=== PATIENT | female | born 1930 | race Caucasian/White ===

== ENCOUNTER → 2016-05-16 | Outpatient (CLI) | payer MEDICARE ==
[~2016-05-16] MED LIST: AGM875T PO; ALLP100T PO; AMT25T PO; ASP81TEC PO; CALC-781 PO; CPR500T PO; DIAZ-345 PO; ENAL5TAB PO; HCT25T PO; HYDR-34 PO; MULT-608 PO; NS IV 1000 ML 1,000 ML IV SCH; OMEG1CAP51 PO; TRAM50TA2 PO
--- OUTSIDE RECORDS SUMMARY | 2016-05-16 09:03 | XMS REPORT | Continuity of Care Document ---
Author Author [facility] Organization [facility] Address Unknown Phone Unavailable Care Team Providers Care Material Reprocessing Associate Name Role Phone DIOR HSIEH MD PCP Insurance Providers Payer Name Policy Number Subscriber Name Relationship Wps Medicare [id number] Leslie Denise L 18 Self / Same As Patient Blue Cross Mcr Supp [id number] Leslie Denise 18 Self / Same As Patient Advance Directives Directive Response Recorded Date/Time Advance Directives No 01/20/14 5:17am Health Care Power of Trenching Machine Operator No 01/20/14 5:17am Organ Donor No 01/20/14 5:17am Resuscitation Status Full Code 01/20/14 5:17am Chief Complaint and Reason for Visit Chief Complaint LLQ ABD PAIN,DIVERTICULITIS,UTI Reason for Visit Urinary tract infection Diverticulitis of intestine Problems Medical Problems Problem Onset Date Status Urinary tract infection Unknown Active Diverticulitis of intestine Unknown Active Medications Medication Dose Route Sig Days/Qty Instructions Order Date Discontinued Date Status Diazepam 5 Mg PO BEDTIME 12/19/10 Active Amitriptyline HCl 25 Mg PO BEDTIME PRN DEPRESSION takes 1/2 tab 01/20/14 Discontinued Hydrochlorothiazide 1 Each PO DAILY 12/19/10 01/20/14 Discontinued Aspirin 81 Mg PO DAILY 12/19/10 Active Multivitamins 1 Tab PO DAILY 12/19/10 Active [place]-3 Fatty Acids/Fish Oil 1,000 Mg PO DAILY 12/19/10 Active Enalapril Maleate 5 Mg PO DAILY 12/19/10 Active Acetaminophen/Hydrocodone Bitart 1 - 2 Ea PO Q 4 - 6 HR PRN 01/10/11 08/08/12 Discontinued Tramadol Hcl 50 Mg PO EVERY 6 HOURS 08/08/12 01/20/14 Discontinued Ciprofloxacin 1 Tab PO TWICE A DAY 08/08/12 01/20/14 Discontinued Hydrochlorothiazide 25 Mg PO DAILY 08/08/12 01/20/14 Discontinued Allopurinol 200 Mg PO DAILY 01/20/14 Active Calcium Carbonate/Mag Hydrox 1 Tab PO DAILY PRN STOMACH UPSET Active Amoxicillin/Clavulanate K 1 Tab PO TWICE A DAY 10 Qty 01/22/14 Active Social History Social History Problem Response Recorded Date/Time Alcohol Use Denies Use 01/20/2014 4:52am Recreational Drug Use No 01/20/2014 4:52am Recent Foreign Travel No 01/20/2014 4:52am Recent Infectious Disease Exposure No 01/20/2014 4:52am Hospitalization with Isolation Denies 01/22/2014 2:59pm Sexually Transmitted Disease No 01/20/2014 4:52am Smoking Status Never a Smoker 01/20/2014 4:56am Do you dip or chew tobacco? No 01/20/2014 4:56am Query Response Start Date Stop Date Smoking Status Never a Smoker Hospital Discharge Instructions Patient Instructions Physician Instructions Plan of Care/Instructions/FU: Completer remaining 5 days of antibiotic Activity as Tolerated: Yes Discharge Diet: No Restrictions Return to The Hospital For: Declining condition Plan of Care Discharge Date 01/22/14 1:15pm Disposition 30 STILL A PATIENT Instructions/Education Provided Acute Abdominal Pain (ED) Forms Provided [facility] Information PDI Medical Prescriptions See Medications Section Referrals DIOR HSIEH MD (Unspecified) Address: [address] [place] [address] [id number] Functional Status Query Response Date Recorded Patient Orientation Person Place Time Situation January 22, 2014 2:59pm Comprehension Ability Understands Concepts January 21, 2014 9:00pm Allergies, Adverse Reactions, Alerts Allergen Type Severity Reaction Status Last Updated Sulfa (Sulfonamide Antibiotics) ([id number]) Allergy Unknown Active 05/05 Immunizations Name Given Type Hepatitis A No Historical Hepatitis B No Historical Tetanus Booster (TDap) Unknown Historical influenza, split (incl. purified surface antigen) 01/21/14 Administered influenza, split (incl. purified surface antigen) 01/21/14 Administered Vital Signs Acute Vital Signs Vital Response Date/Time Temperature (Fahrenheit) 96.9 degrees F (97.6 - 99.5) Temperature (Calculated Celsius) 36.11601 degrees C (36.4 - 37.5) Temperature Source Tympanic Pulse Rate (adult) 79 bpm (60 - 90) Respiratory Rate 18 bpm (12 - 24) O2 Sat by Pulse Oximetry 93 % (88 - 100) Blood Pressure 133/64 mm Hg Pain Pain Intensity 0 Height (Feet) 5 feet Height (Inches) 6.00 inches Height (Calculated Centimeters) 167.059234 cm Weight (Pounds) 223 pounds Weight (Calculated Grams) 373352.100 gm Weight (Calculated Kilograms) 101.307933 kilograms Calculated BMI 35.99 Results Test Source Date Result Interp. Ref. Range Comments Alanine Aminotransferase (ALT/SGPT) August 08, 2012 8:30am 76 U/L H 30- 65 Albumin August 08, 2012 8:30am 3.5 G/DL N 3.4-5.0 Alkaline Phosphatase August 08, 2012 8:30am 90 U/L N 50-136 Aspartate Amino Transf (AST/SGOT) August 08, 2012 8:30am 62 U/L H 15-37 B-Type Natriuretic Peptide November 09, 2005 4:45pm 40.5 PG/ML N 5.0-100.0 BUN/Creatinine Ratio August 08, 2012 8:30am 15 - Basophils # (Auto) August 08, 2012 8:30am 0.0 10^3/uL N 0.0-0.1 Basophils (%) (Auto) August 08, 2012 8:30am 0 % N 0-10 Blood Urea Nitrogen August 08, 2012 8:30am 22 MG/DL H 7-18 C-Reactive Protein August 08, 2012 8:30am 3.8 MG/DL H 0.2-0.9 Calcium Level August 08, 2012 8:30am 8.8 MG/DL N 8.5-10.1 Carbon Dioxide Level August 08, 2012 8:30am 29 MMOL/L N 21-32 Chloride Level August 08, 2012 8:30am 99 MMOL/L L 101-110 Creatinine August 08, 2012 8:30am 1.5 MG/DL H 0.6-1.3 Eosinophils # (Auto) August 08, 2012 8:30am 0.1 10^3/uL N 0.0-0.3 Eosinophils (%) (Auto) August 08, 2012 8:30am 1 % N 0-10 Erythrocyte Sedimentation Rate August 08, 2012 8:30am 12 MM/HR N 0-30 Glucose Level August 08, 2012 8:30am 138 MG/DL H 74-106 Hematocrit August 08, 2012 8:30am 37 % N 35-52 Hemoglobin August 08, 2012 8:30am 13.3 G/DL N 11.5-16.0 Lymphocytes # (Auto) August 08, 2012 8:30am 1.1 X 10^3 N 1.0-4.0 Lymphocytes (%) (Auto) August 08, 2012 8:30am 17 % N 12-44 Mean Corpuscular Hemoglobin August 08, 2012 8:30am 33 PG N 25-34 Mean Corpuscular Hemoglobin Concent August 08, 2012 8:30am 36 G/DL N 32- 36 Mean Corpuscular Volume August 08, 2012 8:30am 94 FL N 80-99 Mean Platelet Volume August 08, 2012 8:30am 9.4 FL N 7.4-10.4 Monocytes # (Auto) August 08, 2012 8:30am 0.5 X 10^3 N 0.0-1.0 Monocytes (%) (Auto) August 08, 2012 8:30am 8 % N 0-12 Neutrophils # (Auto) August 08, 2012 8:30am 4.8 X 10^3 N 1.8-7.8 Neutrophils (%) (Auto) August 08, 2012 8:30am 73 % N 42-75 Platelet Count August 08, 2012 8:30am 141 10^3/uL N 130-400 Potassium Level August 08, 2012 8:30am 3.6 MMOL/L N 3.6-5.0 Red Blood Count August 08, 2012 8:30am 3.99 10^6/uL L 4.35-5.85 Red Cell Distribution Width August 08, 2012 8:30am 12.7 % N 10.0-14.5 Sodium Level August 08, 2012 8:30am 135 MMOL/L N 135-145 Total Bilirubin August 08, 2012 8:30am 0.5 MG/DL N 0.0-1.0 Total Protein August 08, 2012 8:30am 7.0 G/DL N 6.4-8.2 Uric Acid August 08, 2012 8:30am 9.7 MG/DL H 2.6-7.2 White Blood Count August 08, 2012 8:30am 6.5 10^3/uL N 4.3-11.0 Estimat Glomerular Filtration Rate August 08, 2012 8:30am 33 - GFR INTERPRETIVE DATA UNITS FOR ESTIMATED GFR (eGFR): mL/min/1.73 M2 REFERENCE RANGE FOR ESTIMATED GFR (eGFR) eGFR NORMAL eGFR >60 MODERATELY DECREASED eGFR 30-59 SEVERLY DECREASED eGFR 15-29 KIDNEY FAILURE <15 (OR DIALYSIS) MRSA Screen Nasal December 19, 2010 9:45am MRSA not isolated Procedures No known history of procedures. Encounters Encounter Location Date/Time Discharged Inpatient [facility] 01/20/14 3:30am Recent Diagnosis Urinary tract infection Diverticulitis of intestine
[2016-05-16 09:41] LABS: ALBUMIN 4.1 G/DL (3.2-4.5); BILIRUBIN,TOTAL 0.5 MG/DL (0.1-1.0); CALCIUM 9.3 MG/DL (8.5-10.1); CREATININE SERUM 1.52 MG/DL (0.60-1.30); POTASSIUM 4.2 MMOL/L (3.6-5.0)
== END ==
LOC: RAD 09:00
PROVIDERS: ATTEND Internal Medicine Cardiovascular Disease
DX: I65.23 Occlusion and stenosis of bilateral carotid arteries (principal)
CPT/HCPCS: 36415; 80053; 80061; 82565; 84520

== ENCOUNTER → 2016-05-18 | Outpatient (CLI) | payer MEDICARE ==
[~2016-05-18] MED LIST changes: +CATHETER FLUSH 10 ML SYR IV PRN; +IOHEXOL 350 MG/ML 100 ML (OMNIPAQUE 350) VIAL IV ONE; +NS 100 ML (IVPB) BAG IV ONE; -NS IV 1000 ML 1,000 ML IV SCH
--- OUTSIDE RECORDS SUMMARY | 2016-05-18 09:03 | XMS REPORT | Continuity of Care Document ---
Author Author [facility] Organization [facility] Address Unknown Phone Unavailable Care Team Providers Care Aircraft Armament Mechanic Name Role Phone DIOR HSIEH MD PCP Insurance Providers Payer Name Policy Number Subscriber Name Relationship Wps Medicare [id number] Leslie Denise L 18 Self / Same As Patient Blue Cross Mcr Supp [id number] Leslie Denise 18 Self / Same As Patient Advance Directives Directive Response Recorded Date/Time Advance Directives No 01/20/14 5:17am Health Care Power of Senior Hadoop Developer No 01/20/14 5:17am Organ Donor No 01/20/14 [...] Multivitamins 1 Tab PO DAILY 12/19/10 Active [place]-3 Fatty Acids/Fish Oil 1,000 Mg PO DAILY [...] Section Referrals DIOR HSIEH MD (Unspecified) Address: [address] [place] [address] [id number] Functional Status Query Response Date Recorded Patient Orientation Person Place Time Situation January 22, 2014 2:59pm Comprehension Ability Understands Concepts January 21, 2014 9:00pm Allergies, Adverse Reactions, Alerts Allergen Type Severity Reaction Status Last Updated Sulfa (Sulfonamide Antibiotics) ([id number]) Allergy Unknown Active 05/05 Immunizations Name Given Type Hepatitis A No Historical Hepatitis B No Historical Tetanus Booster (TDap) Unknown Historical influenza, split (incl. purified surface antigen) 01/21/14 Administered influenza, split (incl. purified surface antigen) 01/21/14 Administered Vital Signs Acute Vital Signs Vital Response Date/Time Temperature (Fahrenheit) 96.9 degrees F (97.6 - 99.5) Temperature (Calculated Celsius) 36.24792 degrees C (36.4 - 37.5) Temperature Source Tympanic Pulse Rate (adult) 79 bpm (60 - 90) Respiratory Rate 18 bpm (12 - 24) O2 Sat by Pulse Oximetry 93 % (88 - 100) Blood Pressure 133/64 mm Hg Pain Pain Intensity 0 Height (Feet) 5 feet Height (Inches) 6.00 inches Height (Calculated Centimeters) 167.588640 cm Weight (Pounds) 223 pounds Weight (Calculated Grams) 693742.100 gm Weight (Calculated Kilograms) 101.633868 kilograms Calculated BMI 35.99 Results Test Source [...] Encounters Encounter Location Date/Time Discharged Inpatient [facility] 01/20/14 3:30am Recent Diagnosis Urinary tract infection Diverticulitis of intestine
[2016-05-18 10:09] LABS: CREATININE SERUM 1.37 MG/DL (0.60-1.30)
--- NOTE | 2016-05-18 12:03 | Diagnostic Imaging Report ---
EXAMINATION: CTA of the neck. INDICATION: Carotid stenosis. TECHNIQUE: Contiguous axial sections were taken from the mid portion of the skull to the lung apices following administration of intravenous contrast. Sagittal and coronal reconstructed images were also performed. COMPARISON: There are no prior studies available for comparison. FINDINGS: There is heavy atherosclerotic plaque involving both carotid bifurcations. There is a band-like stenosis of the origin of the internal carotid artery on the left. The stenosis in this area is probably in the 60-70% range. There is an even more stenotic portion of the proximal internal carotid artery, roughly 2 cm cephalad to this area. The stenosis in this area is in the 70-80% range. There is also narrowing of the origin of the internal carotid artery on the right, but the stenosis in this area is less than 70%. Both vertebral arteries were identified. The vertebral arteries are codominant. The images through the skull show no evidence for an aneurysm involving the [place]. There is no sign of a hemodynamically significant stenosis either. There is no mass or adenopathy involving the neck. The thyroid gland is prominent and somewhat heterogeneous in appearance. The lung apices are clear. The bone windows show no sign of a fracture or of a destructive lesion. There is degenerative disc and bony disease at C5-6. The intracranial contents, where visualized, are unremarkable for an acute abnormality. IMPRESSION: 1. There is severe atherosclerotic disease involving both carotid bifurcations. There is a 60-70% stenosis of the origin of the internal carotid artery on the left. Just cephalad to this area, there is another more severe (70-80%) stenosis of the internal carotid artery. There is no hemodynamically significant stenosis of the internal carotid artery on the right. 2. If further evaluation is desired, then a carotid Doppler exam would be recommended. Dictated by: Dictated on workstation # [id number]
== END ==
LOC: RAD 09:00
PROVIDERS: ATTEND Internal Medicine Cardiovascular Disease
DX: I65.23 Occlusion and stenosis of bilateral carotid arteries (principal)
CPT/HCPCS: 36415; 70498; 82565; 84520

== ENCOUNTER → 2017-03-25 | Outpatient (CLI) | payer MEDICARE ==
[~2017-03-25] MED LIST changes: -CATHETER FLUSH 10 ML SYR IV PRN; -IOHEXOL 350 MG/ML 100 ML (OMNIPAQUE 350) VIAL IV ONE; -NS 100 ML (IVPB) BAG IV ONE
--- NOTE | 2017-03-25 13:24 | Diagnostic Imaging Report ---
CLINICAL INDICATION: Patient with thyroid mass. COMPARISONS: CT angiogram of the neck dated 05/18/2016. FINDINGS: THYROID NODULES: There is a 1.7 cm x 1.2 cm x 2.1 cm circumscribed hypoechoic nodule within the mid left thyroid gland region. There appear to be small calcifications within this nodule and central Doppler flow noted. There is no other left thyroid nodule seen. There is a 6 mm x 5 mm x 6 mm nodule with posterior shadowing seen within the mid right thyroid region. These nodules are better seen on ultrasound than the comparison CT angiogram and difficult to compare. THYROID GLAND: Besides the thyroid nodules, the thyroid gland has normal size, shape and echogenicity. The right lobe measures 4.8 cm x 1.8 cm x 2.0 cm and the left lobe measures 4.2 cm x 1.3 cm x 2.1 cm in their three dimensions. ISTHMUS: The isthmus is unremarkable and measures 3 mm in thickness. IMPRESSION: 1: There is a 2.1 cm hypoechoic nodule seen within the midportion of the left thyroid gland. There also appears to be calcification within this nodule and central Doppler flow. Fine-needle aspiration of this nodule is suggested for further evaluation. 2: There is a 6 mm partially calcified nodule seen in the midportion of the right thyroid gland. Report was faxed to office of Dr. Ezra Nelson @ 1:21 PM/gisell. Dictated by: Dictated on workstation # [id number]
== END ==
LOC: RAD 11:48
PROVIDERS: ATTEND Internal Medicine
DX: E04.2 Nontoxic multinodular goiter (principal)
CPT/HCPCS: 76536

== ENCOUNTER → 2017-04-01 | Outpatient (CLI) | payer MEDICARE ==
[~2017-04-01] VITALS: Ht 167.6 cm; Wt 101.2 kg
[~2017-04-01] MED LIST changes: +LIDOCAINE 1% INJ 20 ML (XYLOCAINE) VIAL INJ ONE; +LIDOCAINE 1% INJ 50 ML (XYLOCAINE) VIAL ONE
[2017-04-01 13:00] VITALS: BP 128/78
[2017-04-01 13:32] VITALS: BP 128/79
--- NOTE | 2017-04-01 17:07 | Diagnostic Imaging Report ---
EXAMINATION: US-guided core biopsy-thyroid. INDICATION: Left thyroid nodule. Current history and physical and other medical records are reviewed prior to the procedure. CONSENT: Informed consent was obtained from the patient. The risks, benefits, potential complications and alternatives were reviewed and all questions answered to the patient's satisfaction. The patient's vital signs, cardiac rhythm, and pulse oximetry with observed throughout the procedure by qualified nursing personnel. Sedation/medications: none. FINDINGS: Hypoechoic thyroid nodule. PROCEDURE: After maximal sterile barrier technique preparation and draping, 1% lidocaine was utilized for local anesthesia. With the patient in supine position, and via anterior approach, a 19-gauge guide needle is introduced into the dominant left thyroid nodule under live ultrasound guidance. After confirming adequate positioning with saved ultrasound images, multiple 20 gauge core biopsy specimens were obtained. The patient tolerated the procedure well with no immediate complications. IMPRESSION: Successful US-guided core biopsy of dominant left thyroid nodule. Dictated by: Dictated on workstation # [id number]
== END ==
LOC: RAD 12:30
PROVIDERS: ATTEND Internal Medicine
DX: E04.1 Nontoxic single thyroid nodule (principal)
CPT/HCPCS: 76942

== ENCOUNTER 2017-04-19 14:07 | Emergency (ER) | payer MEDICARE ==
[~2017-04-19] VITALS: Ht 165.1 cm; Wt 96.2 kg
[~2017-04-19 14:07] MED LIST changes: -LIDOCAINE 1% INJ 20 ML (XYLOCAINE) VIAL INJ ONE; -LIDOCAINE 1% INJ 50 ML (XYLOCAINE) VIAL ONE
--- OUTSIDE RECORDS SUMMARY | 2017-04-19 14:14 | XMS REPORT | Continuity of Care Document ---
Author Author [facility] Organization [facility] Address Unknown Phone Unavailable Allergies Active Description Code Type Severity Reaction Onset Reported/Identified Relationship to Patient Clinical Status Yes Sulfa (Sulfonamide Antibiotics) [id number] Drug Allergy Unknown N/A 2013 Medications There is no data. Problems Date Dx Coded Attending Type Code Diagnosis Diagnosed By 01/10/2011 Ot 401.9 HYPERTENSION NOS 01/10/2011 Ot 715.31 LOC OSTEOARTH NOS-SHLDER 01/10/2011 Ot V58.69 OTH MED,LT, CURRENT USE 08/08/2012 MYRA SWANSON MD Ot 274.9 GOUT NOS 08/08/2012 MYRA SWANSON MD Ot 729.81 SWELLING OF LIMB 08/08/2012 MYRA SWANSON MD Ot V58.69 OTH MED,LT,CURRENT USE 09/22/2012 ANGELICA FITCH APRN Ot 715.96 OSTEOARTHROS NOS-L/LEG 09/22/2012 ANGELICA FITCH APRN Ot V57.1 PHYSICAL THERAPY NEC 01/22/2014 DIOR HSIEH MD Ot 041.49 OTHER AND UNSPECIFIED ESCHERICHIA COLI [ 01/22/2014 DIOR HSIEH MD Ot 272.4 HYPERLIPIDEMIA NEC/NOS 01/22/2014 DIOR HSIEH MD Ot 274.9 GOUT NOS 01/22/2014 DIOR HSIEH MD Ot 401.9 HYPERTENSION NOS 01/22/2014 DIOR HSIEH MD Ot 530.81 ESOPHAGEAL REFLUX 01/22/2014 DIOR HSIEH MD Ot 562.11 DIVERTICULITIS COLON (W/O MENT OF HEMORR 01/22/2014 DIOR HSIEH MD Ot 564.1 IRRITABLE BOWEL SYNDROME 01/22/2014 DIOR HSIEH MD Ot 599.0 URIN TRACT INFECTION NOS 01/22/2014 DIOR HSIEH MD Ot 716.89 ARTHROPATHY NEC-MULT 01/22/2014 DIOR HSIEH MD Ot V12.72 PERSONAL HISTORY OF COLONIC POLYPS 01/22/2014 JORI DAMIAN DIOR Mendoza Ot 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 03/05/2014 DIOR HSIEH MD Ot 562.11 12/29/2014 DIOR HSIEH MD Ot 790.6 01/04/2015 MOON PA, CROW K Ot 272.4 01/04/2015 MOON PA, CROW K Ot 401.9 01/04/2015 MOON PA, CROW K Ot 426.53 01/04/2015 MOON PA, CROW K Ot 433.10 01/06/2015 JORI DAMIAN, DIOR Mendoza Ot 790.6 01/19/2015 MOON PA, CROW K Ot 272.4 01/19/2015 MOON PA, CROW K Ot 401.9 01/19/2015 MOON PA, CROW K Ot 426.53 01/19/2015 MOON PA, CROW K Ot 433.10 01/26/2015 MOON PA, CROW K Ot 272.4 01/26/2015 MOON PA, CROW K Ot 401.9 01/26/2015 MOON PA, CROW K Ot 426.53 01/26/2015 MOON PA, CROW K Ot 433.10 09/28/2015 Ot 790.4 ELEV TRANSAMINASE/LDH 09/28/2015 Ot 715.91 OSTEOARTHROS NOS-SHLDER 09/28/2015 Ot 840.4 SPRAIN ROTATOR CUFF 09/28/2015 Ot E000.8 OTHER EXTERNAL CAUSE STATUS 09/28/2015 Ot E928.9 ACCIDENT NOS 09/28/2015 Ot 715.31 LOC OSTEOARTH NOS-SHLDER 09/28/2015 Ot V72.63 PRE- PROCEDURAL LABORATORY EXAMINATION 09/28/2015 Ot V72.81 EXAM-PRE- OPERATIVE CARDIOVASCULAR 09/28/2015 Ot V74.8 SCREEN- BACTERIAL DIS NEC 09/28/2015 Ot 426.4 RT BUNDLE BRANCH BLOCK 09/28/2015 Ot V72.81 EXAM-PRE- OPERATIVE CARDIOVASCULAR 09/28/2015 Ot 397.0 TRICUSPID VALVE DISEASE 09/28/2015 Ot 424.0 MITRAL VALVE DISORDER 09/28/2015 Ot 426.4 RT BUNDLE BRANCH BLOCK 09/28/2015 Ot V72.81 EXAM-PRE- OPERATIVE CARDIOVASCULAR 09/28/2015 Ot 426.4 RT BUNDLE BRANCH BLOCK 09/28/2015 Ot V72.81 EXAM-PRE- OPERATIVE CARDIOVASCULAR 09/28/2015 Ot V76.12 OTH SCREEN MAMMO-MALIGN NEOPLASM OF ANA CRISTINA 09/28/2015 DIOR HSIEH MD Ot 562.11 DIVERTICULITIS COLON (W/O MENT OF HEMORR 09/28/2015 JORI DAMIAN, DIOR Mendoza Ot 790.6 ABN BLOOD CHEMISTRY NEC 09/28/2015 CROW SORTO Ot 272.4 HYPERLIPIDEMIA NEC/NOS 09/28/2015 CROW SORTO Ot 401.9 HYPERTENSION NOS 09/28/2015 CROW SORTO Ot 426.53 BILAT BB BLOCK NEC 09/28/2015 CROW SORTO Ot 433.10 CAROTID ARTERY OCCLUSION W O CEREBRAL IN 09/29/2015 SHRUTHI JI MD Ot I65.29 OCCLUSION AND STENOSIS OF UNSPECIFIED CA 09/29/2015 SHRUTHI JI MD Ot E78.5 HYPERLIPIDEMIA, UNSPECIFIED 09/29/2015 SHRUTHI JI MD Ot I10 ESSENTIAL (PRIMARY) HYPERTENSION 09/29/2015 SHRUTHI JI MD Ot I45.2 BIFASCICULAR BLOCK 10/18/2015 SHRUTHI JI MD Ot E78.5 HYPERLIPIDEMIA, UNSPECIFIED 10/18/2015 SHRUTHI JI MD Ot I10 ESSENTIAL (PRIMARY) HYPERTENSION 10/18/2015 SHRUTHI JI MD Ot I45.2 BIFASCICULAR BLOCK 10/31/2015 SHRUTHI JI MD Ot E78.5 HYPERLIPIDEMIA, UNSPECIFIED 10/31/2015 SHRUTHI JI MD Ot I10 ESSENTIAL (PRIMARY) HYPERTENSION 10/31/2015 SHRUTHI JI MD Ot I45.2 BIFASCICULAR BLOCK 05/15/2016 Ot 715.31 LOC OSTEOARTH NOS-SHLDER 05/15/2016 Ot V72.63 PRE- PROCEDURAL LABORATORY EXAMINATION 05/15/2016 Ot V72.81 EXAM-PRE- OPERATIVE CARDIOVASCULAR 05/15/2016 Ot V74.8 SCREEN- BACTERIAL DIS NEC 05/15/2016 Ot 426.4 RT BUNDLE BRANCH BLOCK 05/15/2016 Ot V72.81 EXAM-PRE- OPERATIVE CARDIOVASCULAR 05/15/2016 Ot 397.0 TRICUSPID VALVE DISEASE 05/15/2016 Ot 424.0 MITRAL VALVE DISORDER 05/15/2016 Ot 426.4 RT BUNDLE BRANCH BLOCK 05/15/2016 Ot V72.81 EXAM-PRE- OPERATIVE CARDIOVASCULAR 05/15/2016 Ot 426.4 RT BUNDLE BRANCH BLOCK 05/15/2016 Ot V72.81 EXAM-PRE- OPERATIVE CARDIOVASCULAR 05/15/2016 Ot V76.12 OTH SCREEN MAMMO-MALIGN NEOPLASM OF ANA CRISTINA 05/15/2016 DIOR HSIEH MD Ot 562.11 DIVERTICULITIS COLON (W/O MENT OF HEMORR 05/15/2016 DIOR HSIEH MD Ot 790.6 ABN BLOOD CHEMISTRY NEC 05/15/2016 CROW SORTO Ot 272.4 HYPERLIPIDEMIA NEC/NOS 05/15/2016 CROW SORTO Ot 401.9 HYPERTENSION NOS 05/15/2016 CROW SORTO Ot 426.53 BILAT BB BLOCK NEC 05/15/2016 CROW SORTO Ot 433.10 CAROTID ARTERY OCCLUSION W O CEREBRAL IN 05/15/2016 SHRUTHI JI MD Ot E78.5 HYPERLIPIDEMIA, UNSPECIFIED 05/15/2016 SHRUTHI JI MD Ot I10 ESSENTIAL (PRIMARY) HYPERTENSION 05/15/2016 SHRUTHI JI MD Ot I45.2 BIFASCICULAR BLOCK 05/16/2016 SHRUTHI JI MD Ot 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 Results Test Result Range [id number] - 05/18/16 09:20 Serum or plasma urea nitrogen measurement (mass/volume) 19 mg/dL 7-18 Serum or plasma creatinine measurement (mass/volume) 1.37 mg/dL 0.60-1.30 Serum or plasma urea nitrogen/creatinine mass ratio 14 NRG Serum or plasma creatinine measurement with calculation of estimated glomerular filtration rate 36 NRG Encounters ACCT No. Visit Date/Time Discharge Status Pt. Type Provider Facility Loc./Unit Complaint [id number] 04/01/2017 12:30:00 04/01/2017 23:59:59 CLS Outpatient DIOR HSIEH MD [facility] RAD THYROID MASS [id number] 03/25/2017 11:48:00 03/25/2017 23:59:59 CLS Outpatient DIOR HSIEH MD [facility] RAD THYROID MASS [id number] 01/04/2017 13:30:00 01/04/2017 23:59:59 CLS Preadmit TAMIA ZAVALA MD [facility] RAD THYROID NODULE [id number] 05/18/2016 09:00:00 05/18/2016 23:59:59 CLS Outpatient SHRUTHI JI MD [facility] RAD CAROTID ARTERY STENOSIS [id number] 05/16/2016 09:00:00 05/16/2016 23:59:59 CLS Outpatient SHRUTHI JI MD [facility] RAD CAROTID ARTERY STENOSIS [id number] 09/28/2015 14:25:00 09/28/2015 23:59:59 CLS Outpatient SHRUTHI JI MD [facility] CARD CAST,HTN,HLP [id number] 12/30/2014 13:28:00 12/30/2014 23:59:59 CLS Outpatient CROW SORTO [facility] CARD ADAMS,HTN [id number] 12/08/2014 14:32:00 12/08/2014 23:59:59 CLS Outpatient DIOR HSIEH MD [facility] RAD INCREASED LFTS [id number] 02/04/2014 13:27:00 02/04/2014 23:59:59 CLS Outpatient DIOR HSIEH MD [facility] RAD ABDOMINAL PAIN FOLLOW UP DIVERTICULITIS [id number] 01/20/2014 03:30:00 01/22/2014 13:15:00 DIS Inpatient JORI DAMIAN, DIOR Mendoza [facility] 4TH LLQ ABD PAIN, DIVERTICULITIS,UTI [id number] 09/19/2012 14:14:00 09/22/2012 16:25:00 DIS Outpatient ANGELICA FITCH APRN [facility] REHAB OA LT KNEE [id number] 08/08/2012 07:47:00 08/08/2012 10:11:00 DIS Emergency KIKI DAMIAN, MYRA Lara [facility] ER POSS LEFT GREAT TOE INFECTION [id number] 09/28/2015 14:26:00 Document Registration [id number] 12/14/2011 10:34:00 Document Registration [id number] 01/10/2011 08:47:00 Document Registration [id number] 12/27/2010 07:03:00 Document Registration [id number] 12/26/2010 10:13:00 Document Registration [id number] 12/22/2010 09:34:00 Document Registration [id number] 12/19/2010 08:52:00 Document Registration [id number] 11/06/2010 15:30:00 Document Registration [id number] 10/24/2010 07:34:00 Document Registration
--- NOTE | 2017-04-19 14:57 | ED Fall/Injury ---
General Chief Complaint: Trauma-Non Activation Stated Complaint: FALL Nursing Triage Note: ARRIVED VIA AMBULANCE. PT WAS WALKING INTO [employer] AND FELL. STATES SHE USUALLY WALKS WITH A WALKER AND DID NOT HAVE IT TODAY. HIT HER HEAD. DENIES LOC OR NECK PAIN. COMPLAINS OF FOREHEAD AND LEFT SIDED HEAD PAIN. Source: patient Exam Limitations: no limitations History of Present Illness Time seen by provider: 14:20 Initial Comments Here with report of fall at [employer] in [place]. Apparently she was walking out of the store and lost her balance on the handicap ramp and fell and hit her head. Complains of for head and posterior head pain. She states she had some neck pain earlier but that is gone. Also complains of some right mid leg pain. She was able to walk after the fall with assistance. Denies loss of consciousness or other injury. Occurred: just prior to arrival (approximately one hour ago) Severity: moderate Injuries/Pain Location: head, neck, lower extremity Context: lost balance Loss of Consciousness: no loss of consciousness Associated Symptoms (Fall): No Abdominal Pain, No Chest Pain, No Confusion, Headache, No Lightheadedness, No Nausea/Vomiting, Neck Pain, No Shortness of Air Allergies and Home Medications Allergies Coded Allergies: Sulfa (Sulfonamide Antibiotics) (Verified Allergy, Unknown, 01/20/14) Home Medications Aspirin 81 Mg Tabec, 81 MG PO DAILY, (Reported) Atorvastatin Calcium 10 Mg Tablet, 10 MG PO DAILY, (Reported) Diazepam 5 Mg Tablet, 5 MG PO HS, (Reported) Enalapril Maleate 5 Mg Tablet, 5 MG PO DAILY, (Reported) Enalapril/Hydrochlorothiazide 1 Each Tablet, 1 EACH PO DAILY, (Reported) [place]-3 Fatty Acids/Fish Oil 1 Each Capsule, 1,000 MG PO DAILY, (Reported) Constitutional: see HPI, No chills, No fever Eyes: No Symptoms Reported Ears, Nose, Mouth, Throat: no symptoms reported Respiratory: no symptoms reported Cardiovascular: no symptoms reported, No chest pain, No edema Gastrointestinal: no symptoms reported Genitourinary: no symptoms reported Musculoskeletal: see HPI, No back pain, muscle pain, neck pain Skin: change in color, lumps (posterior scalp and forehead) Psychiatric/Neurological: No Symptoms Reported All Other Systems Reviewed Negative Unless Noted: Yes Past Qejkfgh-Govqgd-Mhutdj Hx Patient Social History Alcohol Use: Denies Use Recreational Drug Use: No Smoking Status: Never a Smoker Recent Foreign Travel: No Contact w/Someone Who Travel: No Recent Infectious Disease Expo: No Immunizations Up To Date Tetanus Booster (TDap): Unknown PED Vaccines UTD: No Surgeries History of Surgeries: Yes (KIDNEY SURG 1972) Respiratory History of Respiratory Disorde: No Cardiovascular History of Cardiac Disorders: Yes Neurological History of Neurological Disord: No Reproductive System Hx Reproductive Disorders: No Sexually Transmitted Disease: No Genitourinary Genitourinary Disorders: Kidney Infection, UTI-Chronic Gastrointestinal History of Gastrointestinal Di: Yes (diverticulitis on this admit 01/20/14) Musculoskeletal History of Musculoskeletal Dis: Yes (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) Musculoskeletal Disorders: Gout Endocrine History of Endocrine Disorders: No Cancer History of Cancer: No Psychosocial History of Psychiatric Problem: No Integumentary History of Skin or Integumenta: No Blood Transfusions History of Blood Disorders: No Reviewed Nursing Assessment Reviewed/Agree w Nursing PMH: Yes Family Medical History Family Medial History: FH: cancer G8 SISTER G8 SISTER Parkinson's disease 19 FATHER G8 BROTHER Physical Exam Vital Signs Vital Sign - Last 12Hours 04/19/17 14:09 Temp 97.0 Pulse 81 Resp 18 B/P (MAP) 148/75 (99) Pulse Ox 96 Capillary Refill : Less Than 3 Seconds General Appearance: WD/WN, no apparent distress HEENT: PERRL/EOMI, pharynx normal, other (left upper incisor and lower mid incisors with small chips) Neck: non-tender, full range of motion, supple, normal inspection Cardiovascular: regular rate, rhythm, no murmur Respiratory: lungs clear, normal breath sounds Gastrointestinal: non tender, soft Back: normal inspection, no CVA tenderness, no vertebral tenderness Extremities: no pedal edema, other (mild tenderness to the mid femur region on the right) Neurologic/Psychiatric: alert, oriented x 3 Skin: warm/dry, ecchymosis (posterior scalp 6 x 6 cm hematoma), other (mild abrasion and erythema to the forehead midline without significant hematoma) Artie Coma Score Best Eye Response: (4) Open Spontaneously Best Verbal Response: (5) Oriented Best Motor Response: (6) Obeys Commands Progress/Results/Core Measures Results/Orders My Orders Orders - SHAR CASTELLANO MD Ct Head/Cervical Spine Wo (12/29/17 14:27) Femur, Right, 2 Views (04/19/17 14:27) Vital Signs/I&O Vital Sign - Last 12Hours 04/19/17 14:09 Temp 97.0 Pulse 81 Resp 18 B/P (MAP) 148/75 (99) Pulse Ox 96 Blood Pressure Mean: 99 Progress Note : Progress Note Seen and evaluated. CT head and neck ordered. X-ray right femur ordered. Monitor patient. 1540: No acute findings other than hematoma. Discharged home with return precautions. Patient and family verbalize understanding instructions and agreement with plan. Diagnostic Imaging Diagonstic Imaging: CT Plain Films/CT/US/NM/MRI: c-spine, head Comments VIA [facility] [place], [place] NAME: LESLIE DENISE [facility] REC#: [id number] PT STATUS: REG ER : 1930 PHYSICIAN: SHAR CASTELLANO MD ADMIT DATE: 04/19/17/ER Draft Date of Exam:04/19/17 CT HEAD/CERVICAL SPINE WO PROCEDURE: CT head and CT cervical spine without contrast. TECHNIQUE: Multiple contiguous axial images were obtained through the brain and cervical spine without the use of intravenous contrast. Sagittal and coronal reformations through the cervical spine were then performed. INDICATION: Fall, pain to posterior head. COMPARISON: CT from 05/18/2016. FINDINGS: CT head: There is generalized parenchymal volume loss. There are focal and confluent areas of hypoattenuation about the subcortical and periventricular white matter. No acute intracranial hemorrhage is seen. No CT evidence of acute territorial ischemia is seen. No focal mass is identified. There is calcific atherosclerosis. The calvarium appears intact. There is a moderate-sized hematoma at the left posterior scalp. The paranasal sinuses are clear. CT cervical spine: There is mild reversal of the cervical lordosis centered at C5-C6. No acute fracture or dislocation is seen in the cervical spine. There are advanced degenerative changes at C5-C6, and multilevel facet arthropathy, most pronounced at C3-C4 on the right. The soft tissue contents of the spinal canal are not well seen by CT, but no bony fragments are identified. There is multilevel foraminal stenosis, most severe at C3-C4 on the right. The prevertebral soft tissues are unremarkable. There is a hypoattenuating nodule in the left thyroid gland, measuring 1.6 cm. IMPRESSION: 1. No acute intracranial hemorrhage. No CT evidence of acute territorial ischemia. 2. Moderate-sized hematoma at the left posterior scalp. No acute calvarium fracture is seen. 3. No acute fracture or dislocation is seen in the cervical spine. Multilevel degenerative changes are present, as described above. Dictated on workstation # [id number] Dict: 04/19/17 1510 Trans: 04/19/17 1519 [facility] [id number] Interpreted by: DELILAH PATEL MD Electronically signed by: Diagonstic Imaging: Xray Plain Films/CT/US/NM/MRI: femur Comments VIA [facility] [place], [place] NAME: LESLIE DENISE [facility] REC#: [id number] PT STATUS: REG ER : 1930 PHYSICIAN: SHAR CASTELLANO MD ADMIT DATE: 04/19/17/ER Draft Date of Exam:04/19/17 FEMUR, RIGHT, 2 VIEWS INDICATION: Fall. Femur pain. COMPARISON: None. FINDINGS: Four views of the right femur show no fractures, dislocations, or other acute bony abnormalities identified. Joint spaces are well maintained throughout. The soft tissues appear unremarkable. No radiopaque foreign bodies are identified. IMPRESSION: No acute fractures or dislocations of the right femur. Dictated on workstation # [id number] Dict: 04/19/17 1503 Trans: 04/19/17 1505 [id number] Interpreted by: PREMA URBANO MD Electronically signed by: Departure Impression Impression: Primary Impression: Head injury, acute, without loss of consciousness Qualified Codes: S09.90XA - Unspecified injury of head, initial encounter Additional Impression: Contusion of right leg Qualified Codes: S80.11XA - Contusion of right lower leg, initial encounter Disposition: 01 HOME, SELF-CARE Condition: Stable Departure-Patient Inst. Decision time for Depature: 15:47 Referrals: DIOR HSIEH MD (PCP/Family) Primary Care Physician Patient Instructions: Contusion (DC), HEAD [id number] WAKE-UP Add. Discharge Instructions: All discharge instructions reviewed with patient and/or family. Voiced understanding. Continue home medications as directed. You may take Tylenol 1000 mg every 6 hours as needed for pain. Follow-up with your Dr. in a few days for recheck and further evaluation as needed. You may use ice packs to the area of bruising 20 minutes per hour as needed for swelling over the next one to 2 days. You should be very careful when moving about as she may have some increased dizziness as a result of the head injury for a few days. Return for worse pain, fever, vomiting, vision or balance problems, weakness or other concerns as needed. SHAR CASTELLANO MD Apr 19, 2017 14:57
--- NOTE | 2017-04-19 15:05 | Diagnostic Imaging Report ---
INDICATION: Fall. Femur pain. COMPARISON: None. FINDINGS: Four views of the right femur show no fractures, dislocations, or other acute bony abnormalities identified. Joint spaces are well maintained throughout. The soft tissues appear unremarkable. No radiopaque foreign bodies are identified. IMPRESSION: No acute fractures or dislocations of the right femur. Dictated by: Dictated on workstation # [id number]
[2017-04-19] MEDS ORDERED: ENAL1TAB8 PO (15:11)
[2017-04-19] MEDS ORDERED: ATOR10TA66 PO (15:11)
--- NOTE | 2017-04-19 15:19 | Diagnostic Imaging Report ---
PROCEDURE: CT head and CT cervical spine without contrast. TECHNIQUE: Multiple contiguous axial images were obtained through the brain and cervical spine without the use of intravenous contrast. Sagittal and coronal reformations through the cervical spine were then performed. INDICATION: Fall, pain to posterior head. COMPARISON: CT from 05/18/2016. FINDINGS: CT head: There is generalized parenchymal volume loss. There are focal and confluent areas of hypoattenuation about the subcortical and periventricular white matter. No acute intracranial hemorrhage is seen. No CT evidence of acute territorial ischemia is seen. No focal mass is identified. There is calcific atherosclerosis. The calvarium appears intact. There is a moderate-sized hematoma at the left posterior scalp. The paranasal sinuses are clear. CT cervical spine: There is mild reversal of the cervical lordosis centered at C5-C6. No acute fracture or dislocation is seen in the cervical spine. There are advanced degenerative changes at C5-C6, and multilevel facet arthropathy, most pronounced at C3-C4 on the right. The soft tissue contents of the spinal canal are not well seen by CT, but no bony fragments are identified. There is multilevel foraminal stenosis, most severe at C3-C4 on the right. The prevertebral soft tissues are unremarkable. There is a hypoattenuating nodule in the left thyroid gland, measuring 1.6 cm. IMPRESSION: 1. No acute intracranial hemorrhage. No CT evidence of acute territorial ischemia. 2. Moderate-sized hematoma at the left posterior scalp. No acute calvarium fracture is seen. 3. No acute fracture or dislocation is seen in the cervical spine. Multilevel degenerative changes are present, as described above. Dictated by: Dictated on workstation # [id number]
[2017-04-19 15:58] VITALS: BP 155/79
== END 2017-04-19 15:58 | disposition home or self-care (01) ==
LOC: EDUNIT# 14:07 → ER 14:08
DX: S09.90XA Unspecified injury of head, initial encounter (principal); S80.11XA Contusion of right lower leg, initial encounter; M19.012 Primary osteoarthritis, left shoulder; M10.9 Gout, unspecified; Z79.82 Long term (current) use of aspirin; Z87.440 Personal history of urinary (tract) infections; Z87.19 Personal history of other diseases of the digestive system; W01.10XA Fall on same level from slipping, tripping and stumbling with subsequent striking against unspecified object, initial encounter; Y92.415 Exit ramp or entrance ramp of street or highway as the place of occurrence of the external cause
CPT/HCPCS: 70450; 72125; 73552; 99283

== ENCOUNTER → 2017-07-10 | Outpatient (CLI) | payer MEDICARE ==
[~2017-07-10] MED LIST changes: +ATOR10TA66 PO; +ENAL1TAB8 PO
--- NOTE | 2017-07-10 18:48 | Diagnostic Imaging Report ---
INDICATION: Thyroid nodules, followup. TECHNIQUE: Grayscale sonographic images of the thyroid gland. CORRELATION STUDY: 03/25/2017. FINDINGS: RIGHT LOBE: 4.5 x 2.1 x 2.0 cm. There are three nodules noted about the right lobe. Previously, there was one at the mid aspect measuring 5 x 6 mm and appearing generally stable. Two new slightly heterogeneous nodules are present. One measuring 12 x 6 x 7 mm and additional one 11 x 12 mm. LEFT LOBE: 4.2 x 1.4 x 2.1 cm. Hypoechoic mass centrally currently measures 1.9 x 1.1 x 1.7 cm. Previously 2.1 x 1.2 x 1.7 cm, generally stable. Minimal peripheral vascularity. Isthmus appears unremarkable. IMPRESSION: Bilateral thyroid nodules. The dominant left lobe nodule appears generally stable. There appear to be least two new slightly heterogeneous solid nodules in the right lobe. Given their interval development, would recommend repeat followup ultrasound imaging in approximately four to six months for followup. (Normal gland size: 4-5 x 2 x 2 cm) Dictated by: Dictated on workstation # [id number]
== END ==
LOC: RAD 11:48
PROVIDERS: ATTEND Internal Medicine
DX: E04.2 Nontoxic multinodular goiter (principal)
CPT/HCPCS: 76536

== ENCOUNTER → 2017-09-23 | Outpatient (CLI) | payer MEDICARE ==
--- NOTE | 2017-09-23 16:35 | Diagnostic Imaging Report ---
PROCEDURE: MRI right joint lower extremity without contrast. TECHNIQUE: Multiplanar, multisequence non contrast-enhanced MRI of the right lower extremity was accomplished. INDICATION: Fall with knee pain. FINDINGS: The anterior cruciate and posterior cruciate ligaments are intact. Both the superficial and deep components of the medial collateral ligament are intact. The biceps femoris, fibular collateral, popliteus and iliotibial band are intact. There is some minimal myxoid degeneration in the posterior horn of the medial meniscus. Lateral meniscus is normal in signal intensity and morphology. Quadriceps tendon and patellar tendons are intact. There is a small knee joint effusion. The articular cartilage is relatively well maintained. There is prepatellar soft tissue swelling and fluid. There are no other marrow signal intensity abnormalities. IMPRESSION: 1. Moderate prepatellar soft tissue swelling and loculated fluid suspect for prepatellar bursitis. 2. Small knee joint effusion. 3. Minimal myxoid degeneration in the posterior horn of the medial meniscus. Dictated by: Dictated on workstation # [id number]
== END ==
LOC: RAD 13:37
PROVIDERS: ATTEND Nurse Practitioner
DX: S80.01XA Contusion of right knee, initial encounter (principal); W19.XXXA Unspecified fall, initial encounter
CPT/HCPCS: 73721

== ENCOUNTER 2018-01-17 13:07 | Outpatient (RCR) | payer MEDICARE | END 2018-01-17 15:46 | disposition home or self-care (01) | PROVIDERS: ATTEND Internal Medicine | DX: R26.81 Unsteadiness on feet (principal); R29.6 Repeated falls ==

== ENCOUNTER 2018-03-17 14:19 | Outpatient (RCR) | payer MEDICARE | END 2018-03-23 | disposition home or self-care (01) | LOC: CR3 14:19 | PROVIDERS: ATTEND Internal Medicine | DX: Z29.8 Encounter for other specified prophylactic measures (principal) ==

== ENCOUNTER 2018-06-26 12:48 | Outpatient (RCR) | payer MEDICARE ==
[2018-07-04] MEDS ORDERED: CEPH-507 PO (12:28)
[2018-07-04] MEDS ORDERED: METR500T PO (12:28)
== END 2018-06-26 13:52 | disposition home or self-care (01) ==
PROVIDERS: ATTEND Internal Medicine
DX: M25.512 Pain in left shoulder (principal); R42 Dizziness and giddiness; R26.81 Unsteadiness on feet

== ENCOUNTER 2018-07-01 10:31 | Inpatient (IN) | payer MEDICARE ==
[~2018-07-01] VITALS: Ht 165.1 cm; Wt 91.6 kg
--- OUTSIDE RECORDS SUMMARY | 2018-07-01 12:06 | XMS REPORT | Continuity of Care Document ---
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 04/17/2017 DIOR HSIEH MD Ot E04.2 NONTOXIC MULTINODULAR GOITER 04/19/2017 SHAR CASTELLANO MD, Ot M10.9 GOUT, UNSPECIFIED 04/19/2017 SHAR CASTELLANO MD, Ot M19.012 PRIMARY OSTEOARTHRITIS, LEFT SHOULDER 04/19/2017 SHAR CASTELLANO MD Ot R51 HEADACHE 04/19/2017 SHAR CASTELLANO MD, Ot S09.90XA UNSPECIFIED INJURY OF HEAD, INITIAL ENCO 04/19/2017 SHAR CASTELLANO MD, Ot S80.11XA CONTUSION OF RIGHT LOWER LEG, INITIAL EN 04/19/2017 SHAR CASTELLANO MD Ot W01.10XA FALL SAME LEV FROM SLIP/TRIP W STRIKE AG 04/19/2017 SHAR CASTELLANO MD, Ot Y92.415 EXIT RAMP OR ENTRANCE RAMP OF STREET OR 04/19/2017 SHAR CASTELLANO MD, Ot Z79.82 [facility] (CURRENT) USE OF ASPIRIN 04/19/2017 SHAR CASTELLANO MD, Ot Z87.19 PERSONAL HISTORY OF OTHER DISEASES OF 04/19/2017 SHAR CASTELLANO MD, Ot Z87.440 PERSONAL HISTORY OF URINARY (TRACT) INFE 04/24/2017 DIOR HSIEH MD Ot E04.1 NONTOXIC SINGLE THYROID NODULE 04/25/2017 SHAR CASTELLANO MD, Ot M10.9 GOUT, UNSPECIFIED 04/25/2017 SHAR CASTELLANO MD, Ot M19.012 PRIMARY OSTEOARTHRITIS, LEFT SHOULDER 04/25/2017 SHAR CASTELLANO MD Ot R51 HEADACHE 04/25/2017 SHAR CASTELLANO MD, Ot S09.90XA UNSPECIFIED INJURY OF HEAD, INITIAL ENCO 04/25/2017 SHAR CASTELLANO MD, Ot S80.11XA CONTUSION OF RIGHT LOWER LEG, INITIAL EN 04/25/2017 SHAR CASTELLANO MD Ot W01.10XA FALL SAME LEV FROM SLIP/TRIP W STRIKE AG 04/25/2017 SHAR CASTELLANO MD Ot Y92.415 EXIT RAMP OR ENTRANCE RAMP OF STREET OR 04/25/2017 SHAR CASTELLANO MD Ot Z79.82 TREE WRAPPER (CURRENT) USE OF ASPIRIN 04/25/2017 SHAR CASTELLANO MD, Ot Z87.19 PERSONAL HISTORY OF OTHER DISEASES OF TH 04/25/2017 NONA DAMIAN, SHAR Mendoza Ot Z87.440 PERSONAL HISTORY OF URINARY (TRACT) INFE 04/26/2017 DIOR HSIEH MD Ot E04.2 NONTOXIC MULTINODULAR GOITER 05/02/2017 DIOR HSIEH MD Ot E04.1 NONTOXIC SINGLE THYROID NODULE 08/08/2017 DIOR HSIEH MD Ot E04.2 NONTOXIC MULTINODULAR GOITER 09/24/2017 ANGELICA FITCH POINTER MACHINE OPERATOR Ot S80.01XA CONTUSION OF RIGHT KNEE, INITIAL ENCOUNT 09/24/2017 ANGELICA FITCH POINTER MACHINE OPERATOR Ot W19.XXXA UNSPECIFIED FALL, INITIAL ENCOUNTER 09/24/2017 ANGELICA FITCH POINTER MACHINE OPERATOR Ot S80.01XA CONTUSION OF RIGHT KNEE, INITIAL ENCOUNT 09/24/2017 ANGELICA FITCH POINTER MACHINE OPERATOR Ot W19.XXXA UNSPECIFIED FALL, INITIAL ENCOUNTER 10/16/2017 ANGELICA FITCH POINTER MACHINE OPERATOR Ot S80.01XA CONTUSION OF RIGHT KNEE, INITIAL ENCOUNT 10/16/2017 ANGELICA FITCH POINTER MACHINE OPERATOR Ot W19.XXXA UNSPECIFIED FALL, INITIAL ENCOUNTER 10/22/2017 ANGELICA FITCH POINTER MACHINE OPERATOR Ot S80.01XA CONTUSION OF RIGHT KNEE, INITIAL ENCOUNT 10/22/2017 ANGELICA FITCH POINTER MACHINE OPERATOR Ot W19.XXXA UNSPECIFIED FALL, INITIAL ENCOUNTER 11/08/2017 DIOR HSIEH MD Ot R26.81 UNSTEADINESS ON FEET 11/08/2017 DIOR HSIEH MD Ot R29.6 REPEATED FALLS 12/10/2017 DIOR HSIEH MD Ot R26.81 UNSTEADINESS ON FEET 12/10/2017 DIOR HSIEH MD Ot R29.6 REPEATED FALLS 12/20/2017 DIOR HSIEH MD Ot R26.81 UNSTEADINESS ON FEET 12/20/2017 DIOR HSIEH MD Ot R29.6 REPEATED FALLS 01/17/2018 DIOR HSIEH MD Ot R26.81 UNSTEADINESS ON FEET 01/17/2018 DIOR HSIEH MD Ot R29.6 REPEATED FALLS 03/23/2018 DIOR HSIEH MD Ot Z29.8 ENCOUNTER FOR OTHER SPECIFIED PROPHYLACT 03/24/2018 DIOR HSIEH MD Ot Z29.8 ENCOUNTER FOR OTHER SPECIFIED PROPHYLACT 06/02/2018 DIOR HSIEH MD Ot M25.512 PAIN IN LEFT SHOULDER 06/02/2018 DIOR HSIEH MD Ot R26.81 UNSTEADINESS ON FEET 06/02/2018 DIOR HSIEH MD, Ot R42 DIZZINESS AND GIDDINESS 06/02/2018 DIOR HSIEH MD Ot 562.11 DIVERTICULITIS COLON (W/O MENT OF HEMORR 06/02/2018 DIOR HSIEH MD Ot 790.6 ABN BLOOD CHEMISTRY NEC 06/02/2018 CROW SORTO Ot 272.4 HYPERLIPIDEMIA NEC/NOS 06/02/2018 CROW SORTO Ot 401.9 HYPERTENSION NOS 06/02/2018 CROW SORTO Ot 426.53 BILAT BB BLOCK NEC 06/02/2018 CROW SORTO Ot 433.10 CAROTID ARTERY OCCLUSION W O CEREBRAL IN 06/02/2018 SHRUTHI JI MD Ot E78.5 HYPERLIPIDEMIA, UNSPECIFIED 06/02/2018 SHRUTHI JI MD Ot I10 ESSENTIAL (PRIMARY) HYPERTENSION 06/02/2018 SHRUTHI JI MD Ot I45.2 BIFASCICULAR BLOCK 06/02/2018 SHRUTHI JI MD Ot 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 06/02/2018 SHRUTHI JI MD, Ot 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 Results Test Result Range TON3515 - 05/18/16 09:20 Serum or plasma urea nitrogen measurement (mass/volume) 19 mg/dL 7-18 Serum or plasma creatinine measurement (mass/volume) 1.37 mg/dL 0.60-1.30 Serum or plasma urea nitrogen/creatinine mass ratio 14 NRG Serum or plasma creatinine measurement with calculation of estimated glomerular filtration rate 36 NRG Encounters ACCT No. Visit Date/Time Discharge Status Pt. Type Provider Facility Loc./Unit Complaint [id number] 06/26/2018 12:48:00 06/26/2018 23:59:59 CLS Outpatient DIOR HSIEH MD [facility] REHAB L SHOULDER PAIN; UNSTEADY GAIT [id number] 03/24/2018 00:10:00 03/24/2018 23:59:59 CLS Preadmit DIOR HSIEH MD [facility] WELLNESS [id number] 03/17/2018 14:19:00 03/23/2018 00:01:00 DIS Outpatient DIOR HSIEH MD [facility] WELLNESS [id number] 01/17/2018 13:07:00 01/17/2018 15:46:00 DIS [facility] [id number] 09/23/2017 13:37:00 09/23/2017 23:59:59 CLS Outpatient ANGELICA FITCH APRN [facility] RAD KNEE PAIN, BRUISING AND BULGE RIGHT [id number] 07/10/2017 11:48:00 07/10/2017 23:59:59 CLS Outpatient DIOR HSIEH MD [facility] RAD BILAT THYROID NODULES [id number] 04/19/2017 14:08:00 04/19/2017 15:58:00 DIS Emergency SHAR CASTELLANO MD [facility] ER FALL [id number] 04/01/2017 12:30:00 04/01/2017 23:59:59 CLS Outpatient DIOR HSIEH MD [facility] RAD THYROID MASS [id number] 03/25/2017 11:48:00 03/25/2017 23:59:59 CLS Outpatient DIOR HSIEH MD [facility] RAD THYROID MASS [id number] 01/04/2017 13:30:00 01/04/2017 23:59:59 CLS Preadmit SALLY DAMIAN, TAMIA Mccollum [facility] RAD THYROID NODULE [id number] 05/18/2016 09:00:00 05/18/2016 23:59:59 CLS Outpatient SHRUTHI JI MD [facility] RAD CAROTID ARTERY STENOSIS [id number] 05/16/2016 09:00:00 05/16/2016 23:59:59 CLS Outpatient SHRUTHI JI MD [facility] RAD CAROTID ARTERY STENOSIS [id number] 09/28/2015 14:25:00 09/28/2015 23:59:59 CLS Outpatient SHRUTHI JI MD [facility] CARD CAST,HTN,HLP [id number] 12/30/2014 13:28:00 12/30/2014 23:59:59 CLS Outpatient CROW SORTO [facility] CARD ADAMS,HTN [id number] 12/08/2014 14:32:00 12/08/2014 23:59:59 CLS Outpatient DIOR HSIEH MD [facility] RAD INCREASED LFTS [id number] 02/04/2014 13:27:00 02/04/2014 23:59:59 CLS Outpatient DIOR HSIEH MD [facility] RAD ABDOMINAL PAIN FOLLOW UP DIVERTICULITIS [id number] 01/20/2014 03:30:00 01/22/2014 13:15:00 DIS Inpatient DIOR HSIEH MD [facility] 4TH LLQ ABD PAIN, DIVERTICULITIS,UTI [id number] 09/19/2012 14:14:00 09/22/2012 16:25:00 DIS Outpatient ANGELICA FITCH APRN [facility] REHAB OA LT KNEE [id number] 08/08/2012 07:47:00 08/08/2012 10:11:00 DIS Emergency MYRA SWANSON MD [facility] ER POSS LEFT GREAT TOE INFECTION [id number] 09/28/2015 14:26:00 Document Registration [id number] 12/14/2011 10:34:00 Document Registration [id number] 01/10/2011 08:47:00 Document Registration [id number] 12/27/2010 07:03:00 Document Registration [id number] 12/26/2010 10:13:00 Document Registration [id number] 12/22/2010 09:34:00 Document Registration [id number] 12/19/2010 08:52:00 Document Registration [id number] 11/06/2010 15:30:00 Document Registration [id number] 10/24/2010 07:34:00 Document Registration [id number] 12/30/2014 13:29:57 ACT Document Registration
[2018-07-01] MEDS ORDERED: fentaNYL INJECTION 100 MCG/2 ML AMP IVP ONE (14:00)
[2018-07-01 14:02] LABS: HEMATOCRIT 39 % (35-52); HEMOGLOBIN 13.2 G/DL (11.5-16.0); MEAN CORPUSCULAR HEMOGLOBIN 33 PG (25-34); MEAN CORPUSCULAR HGB CONC 34 G/DL (32-36); MEAN CORPUSCULAR VOLUME 98 FL (80-99); PLATELET COUNT 139 10^3/uL (130-400); RED CELL DISTRIBUTION WIDTH 13.3 % (10.0-14.5); WHITE BLOOD COUNT 10.3 10^3/uL (4.3-11.0)
[2018-07-01 14:03] LABS: BASOPHILS % (AUTO) 0 % (0-10); EOSINOPHILS # (AUTO) 0.1 10^3/uL (0.0-0.3); EOSINOPHILS % (AUTO) 1 % (0-10); LYMPHOCYTES # (AUTO) 1.7 X 10^3 (1.0-4.0); LYMPHOCYTES % (AUTO) 17 % (12-44); MEAN PLATELET VOLUME 9.3 FL (7.4-10.4); MONOCYTES # (AUTO) 1.1 X 10^3 (0.0-1.0); MONOCYTES % (AUTO) 11 % (0-12); NEUTROPHILS # (AUTO) 7.4 X 10^3 (1.8-7.8); NEUTROPHILS % (AUTO) 72 % (42-75)
--- NOTE | 2018-07-01 14:03 | ED Abdominal Pain ---
General Chief Complaint: Abdominal/GI Problems Stated Complaint: ABD PAIN Nursing Triage Note: Pt reports L sided abd pain since yesterday evening. Pt reports diarrhea starting yesterday morning. Pt has hx diverticulitis Sepsis Screen: No Definite Risk Source of Information: Patient, Family Exam Limitations: No Limitations (JEANNE VALENCIA MD) History of Present Illness Date Seen by Provider: Jul 01, 2018 Time Seen by Provider: 12:42 Initial Comments This 87-year-old woman presents to the emergency room with primary complaint of left lower quadrant pain that started last night. The pain is fairly constant and is worsened with cough. She had diarrhea yesterday morning and has not had a bowel movement since then. She does not think there was any blood in her stool. She denies nausea, vomiting, fever, or urinary changes. She does have a history of diverticulitis. (JEANNE VALENCIA MD) Allergies and Home Medications Allergies Coded Allergies: Sulfa (Sulfonamide Antibiotics) (Verified Allergy, Unknown, 01/20/14) Home Medications Aspirin 81 Mg Tabec, 81 MG PO DAILY, (Reported) Atorvastatin Calcium 10 Mg Tablet, 10 MG PO DAILY, (Reported) Diazepam 5 Mg Tablet, 5 MG PO HS, (Reported) Enalapril Maleate 5 Mg Tablet, 5 MG PO DAILY, (Reported) Enalapril/Hydrochlorothiazide 1 Each Tablet, 1 EACH PO DAILY, (Reported) [place]-3 Fatty Acids/Fish Oil 1 Each Capsule, 1,000 MG PO DAILY, (Reported) Patient Home Medication List Home Medication List Reviewed: Yes (JEANNE VALENCIA MD) Review of Systems Review of Systems Constitutional: no symptoms reported EENTM: No Symptoms Reported Respiratory: No Symptoms Reported Cardiovascular: No Symptoms Reported Gastrointestinal: See HPI Genitourinary: No Symptoms Reported Musculoskeletal: no symptoms reported Skin: no symptoms reported Psychiatric/Neurological: No Symptoms Reported Endocrine: No Symptoms Reported Hematologic/Lymphatic: No Symptoms Reported (JEANNE VALENCIA MD) Past Tgxvwey-Cavalm-Rudgaj Hx Past Med/Social Hx: Reviewed and Corrections made (JEANNE VALENCIA MD) Patient Social History Alcohol Use: Denies Use Recreational Drug Use: No Smoking Status: Never a Smoker Recent Foreign Travel: No Contact w/Someone Who Travel: No Recent Infectious Disease Expo: No (JEANNE VALENCIA MD) Immunizations Up To Date Tetanus Booster (TDap): Unknown PED Vaccines UTD: No (JEANNE VALENCIA MD) Past Medical History Surgeries: Yes (KIDNEY SURG 1973) Abdominal (bowel surgery), Eye Surgery (cataracts), Gallbladder, Joint Replacement (knee), Vascular Surgery (left carotid endarterectomy) Respiratory: No Cardiac: Yes Hypertension, Peripheral Vascular (carotid stenosis) Neurological: No : No Reproductive Disorders: No Sexually Transmitted Disease: No Genitourinary: Yes Kidney Infection, UTI-Chronic Gastrointestinal: Yes (diverticulitis on this admit 01/20/14) Diverticulosis (with history of diverticulitis) Musculoskeletal: Yes (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 0.0oz. 96.957258dq; 36.0 BMI Method:Stated General Appearance: WD/WN, no apparent distress HEENT: PERRL/EOMI, normal ENT inspection Neck: normal inspection Respiratory: lungs clear, normal breath sounds, no respiratory distress, no accessory muscle use Cardiovascular: regular rate, rhythm, no edema, no murmur Gastrointestinal: normal bowel sounds, soft; No distended; tenderness (left lower quadrant. 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, no motor/sensory deficits, alert, normal mood/affect, oriented x 3 Skin: normal color, warm/dry (JEANNE VALENCIA MD) Progress/Results/Core Measures Results/Orders Lab Results Laboratory Tests Test 07/01/18 13:52 07/01/18 16:05 Range/Units White Blood Count 10.3 4.3-11.0 10^3/uL Red Blood Count 3.99 L 4.35-5.85 10^6/uL Hemoglobin 13.2 11.5-16.0 G/DL Hematocrit 39 35-52 % Mean Corpuscular Volume 98 80-99 FL Mean Corpuscular Hemoglobin 33 25-34 PG Mean Corpuscular Hemoglobin Concent 34 32-36 G/DL Red Cell Distribution Width 13.3 10.0-14.5 % Platelet Count 139 130-400 10^3/uL Mean Platelet Volume 9.3 7.4-10.4 FL Neutrophils (%) (Auto) 72 42-75 % Lymphocytes (%) (Auto) 17 12-44 % Monocytes (%) (Auto) 11 0-12 % Eosinophils (%) (Auto) 1 0-10 % Basophils (%) (Auto) 0 0-10 % Neutrophils # (Auto) 7.4 1.8-7.8 X 10^3 Lymphocytes # (Auto) 1.7 1.0-4.0 X 10^3 Monocytes # (Auto) 1.1 H 0.0-1.0 X 10^3 Eosinophils # (Auto) 0.1 0.0-0.3 10^3/uL Basophils # (Auto) 0.0 0.0-0.1 10^3/uL Sodium Level 136 135-145 MMOL/L Potassium Level 4.4 3.6-5.0 MMOL/L Chloride Level 102 98-107 MMOL/L Carbon Dioxide Level 26 21-32 MMOL/L Anion Gap 8 5-14 MMOL/L Blood Urea Nitrogen 16 7-18 MG/DL Creatinine 1.31 H 0.60-1.30 MG/DL Estimat Glomerular Filtration Rate 38 BUN/Creatinine Ratio 12 Glucose Level 94 70-105 MG/DL Calcium Level 9.4 8.5-10.1 MG/DL Corrected Calcium 9.4 8.5-10.1 MG/DL Total Bilirubin 0.6 0.1-1.0 MG/DL Aspartate Amino Transf (AST/SGOT) 22 5-34 U/L Alanine Aminotransferase (ALT/SGPT) 15 0-55 U/L Alkaline Phosphatase 48 40-136 U/L Total Protein 6.3 L 6.4-8.2 GM/DL Albumin 4.0 3.2-4.5 GM/DL Urine Color YELLOW Urine Clarity SLIGHTLY CLOUDY Urine pH 7 5-9 Urine Specific [place] 1.005 L 1.016-1.022 Urine Protein NEGATIVE NEGATIVE Urine Glucose (UA) NEGATIVE NEGATIVE Urine Ketones 2+ H NEGATIVE Urine Nitrite NEGATIVE NEGATIVE Urine Bilirubin NEGATIVE NEGATIVE Urine Urobilinogen NORMAL NORMAL MG/DL Urine Leukocyte Esterase 1+ H NEGATIVE Urine RBC (Auto) NEGATIVE NEGATIVE Urine RBC NONE /HPF Urine WBC RARE /HPF Urine Squamous Epithelial Cells 0-2 /HPF Urine Crystals NONE /LPF Urine Bacteria NEGATIVE /HPF Urine Casts PRESENT /LPF Urine Hyaline Casts 0-2 H /LPF Urine Mucus NEGATIVE /LPF Urine Culture Indicated NO (SHAR CASTELLANO MD) My Orders Orders - SHAR CASTELLANO MD Ct Abdomen/Pelvis Wo (07/01/18 14:40) O2 (07/01/18 14:52) Saline Lock/Iv-Start (07/01/18 15:31) Ns Iv 500 Ml (Sodium Chloride 0.9%) (07/01/18 15:31) Ns Iv 500 Ml (Sodium Chloride 0.9%) (07/01/18 15:30) Fentanyl Injection (Sublimaze Injection (07/01/18 16:35) Ketorolac Injection (Toradol Injection) (07/01/18 16:35) (SHAR CASTELLANO MD) Medications Given in ED Current Medications Medications Dose Ordered Sig/Trudy Route Start Time Stop Time Status Last Admin Dose Admin Fentanyl Citrate 25 mcg ONCE ONCE IVP 07/01/18 14:00 07/01/18 14:01 DC 07/01/18 14:10 25 MCG Sodium Chloride 500 ml @ 0 mls/hr Q0M ONCE IV 07/01/18 15:31 07/01/18 15:32 DC 07/01/18 15:34 500 MLS/HR (SHAR CASTELLANO MD) Vital Signs/I&O 07/01/18 07/01/18 11:27 14:45 Temp 96.3 Pulse 77 Resp 18 B/P (MAP) 110/62 (78) Pulse Ox 95 96 O2 Delivery Room Air Nasal Cannula O2 Flow Rate 2.00 (SHAR CASTELLANO MD) Blood Pressure Mean: 78 Progress Progress Note : Time: 14:02 Progress Note Patient has been seen and examined. Labs have been ordered. IV was established but blood has not yet been successfully drawn. UA is also pending. Patient initially declined pain medication. However, she then asked the nurse for something for pain management. Fentanyl 25 g IV was ordered. Care of this patient is now being transitioned to Dr. Castellano. (JEANNE VALENCIA MD) Progress Note : Progress Note 1445: Labs reviewed. Unable to do a CT scan with contrast due to creatinine level but we will go and get CT without contrast to evaluate left lower quadrant. Pain is controlled currently and she states it still there a little bit but much more tolerable. Continue to monitor. 1635: CT does show diverticulitis. I did discuss the case with the fall and she accepts patient for admission, observation status. Repeat fentanyl 25 g IV. Toradol 15 mg IV also ordered. Patient will be initiated on IV antibiotics but this is for inflammation and not for concerns of significant infection or sepsis. Off sepsis protocol and no blood cultures or lactic acid will be ordered on this patient and she is not showing signs of infection currently. (SHAR CASTELLANO MD) Departure Communication (Admissions) Time/Spoke to Admitting Phy: 16:35 (SHAR CASTELLANO MD) Impression Primary Impression: Diverticulitis of intestine Qualified Codes: K57.32 - Diverticulitis of large intestine without perforation or abscess without bleeding Disposition: HOME, SELF-CARE Condition: Stable Admissions Decision to Admit Reason: Admit from ER (General) Decision to Admit/Date: Jul 01, 2018 Time/Decision to Admit Time: 16:35 (SHAR CASTELLANO MD) Departure-Patient Inst. Referrals: DIOR HSIEH MD (PCP) Primary Care Physician JEANNE VALENCIA MD Jul 01, 2018 14:03 SHAR CASTELLANO MD Jul 01, 2018 14:48
[2018-07-01 14:20] LABS: BILIRUBIN,TOTAL 0.6 MG/DL (0.1-1.0); CALCIUM 9.4 MG/DL (8.5-10.1); CREATININE SERUM 1.31 MG/DL (0.60-1.30); POTASSIUM 4.4 MMOL/L (3.6-5.0); TOTAL PROTEIN 6.3 GM/DL (6.4-8.2)
[2018-07-01] MEDS ORDERED: NS IV 500 ML 500 ML ONE (15:30)
[2018-07-01] MEDS ORDERED: NS IV 500 ML 500 ML IV ONE (15:31)
--- NOTE | 2018-07-01 15:32 | Diagnostic Imaging Report ---
PROCEDURE: CT abdomen and pelvis without contrast. TECHNIQUE: Multiple contiguous axial images were obtained through the abdomen and pelvis without the use of intravenous contrast. INDICATION: Abdominal pain. COMPARISON: Correlation is made with prior CT from 02/04/2014. FINDINGS: The lung bases are clear. There is a moderate-sized hiatal hernia. The liver is unremarkable. The gallbladder is surgically absent. No biliary duct dilatation is seen. Pancreas and spleen are unremarkable. No adrenal mass is detected. No renal calculi or hydronephrosis is identified. Aorta is calcified but nonaneurysmal. There is diverticulosis of the descending colon and sigmoid. There is wall thickening with pericolonic inflammation at the junction of the descending colon and sigmoid consistent with acute diverticulitis. No abscess formation is seen. No bowel obstruction is identified. There is no free fluid or free air. The bladder is unremarkable. The uterus appears absent or atrophic. IMPRESSION: Findings consistent with acute diverticulitis at the junction of the descending colon and sigmoid. No abscess formation or bowel obstruction is identified. Dictated by: Dictated on workstation # [id number]
[2018-07-01 16:16] LABS: BILIRUBIN,URINE NEGATIVE (NEGATIVE); CLARITY,URINE SLIGHTLY CLOUDY; COLOR,URINE YELLOW; GLUCOSE, URINE (UA) NEGATIVE (NEGATIVE); KETONES,URINE 2+ (NEGATIVE); LEUKOCYTE ESTERASE ,URINE 1+ (NEGATIVE); NITRITE,URINE NEGATIVE (NEGATIVE); PH,URINE 7 (5-9); PROTEIN,URINE NEGATIVE (NEGATIVE); UROBILINOGEN,URINE NORMAL (NORMAL)
[2018-07-01 16:23] LABS: BACTERIA,URINE NEGATIVE /HPF; HYALINE CASTS, URINE 0-2 /LPF; SQUAMOUS EPITHELIAL CELL,UR 0-2 /HPF; WBC,URINE RARE /HPF
[2018-07-01] MEDS ORDERED: KETOROLAC 30 MG/ML VIAL IVP STA (16:35)
[2018-07-01] MEDS ORDERED: fentaNYL INJECTION 100 MCG/2 ML AMP IVP STA (16:35)
--- OUTSIDE RECORDS SUMMARY | 2018-07-01 18:05 | XMS REPORT | Continuity of Care Document ---
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 04/25/2017 SHAR CASTELLANO MD, Ot Z87.19 PERSONAL HISTORY OF OTHER DISEASES OF TH 04/25/2017 NONA DAMIAN, SHAR Mendoza Ot Z87.440 PERSONAL HISTORY OF URINARY (TRACT) INFE 04/26/2017 DIOR HSIEH MD Ot E04.2 NONTOXIC MULTINODULAR GOITER 05/02/2017 DIOR HSIEH MD Ot E04.1 NONTOXIC SINGLE THYROID NODULE 08/08/2017 DIOR HSIEH MD Ot E04.2 NONTOXIC MULTINODULAR GOITER 09/24/2017 ANGELICA FITCH HOT ROLL LAMINATOR Ot S80.01XA CONTUSION OF RIGHT KNEE, INITIAL ENCOUNT 09/24/2017 ANGELICA FITCH HOT ROLL LAMINATOR Ot W19.XXXA UNSPECIFIED FALL, INITIAL ENCOUNTER 09/24/2017 ANGELICA FITCH HOT ROLL LAMINATOR Ot S80.01XA CONTUSION OF RIGHT KNEE, INITIAL ENCOUNT 09/24/2017 ANGELICA FITCH HOT ROLL LAMINATOR Ot W19.XXXA UNSPECIFIED FALL, INITIAL ENCOUNTER 10/16/2017 ANGELICA FITCH HOT ROLL LAMINATOR Ot S80.01XA CONTUSION OF RIGHT KNEE, INITIAL ENCOUNT 10/16/2017 ANGELICA FITCH HOT ROLL LAMINATOR Ot W19.XXXA UNSPECIFIED FALL, INITIAL ENCOUNTER 10/22/2017 ANGELICA FITCH HOT ROLL LAMINATOR Ot S80.01XA CONTUSION OF RIGHT KNEE, INITIAL ENCOUNT 10/22/2017 ANGELICA FITCH HOT ROLL LAMINATOR Ot W19.XXXA UNSPECIFIED FALL, INITIAL ENCOUNTER 11/08/2017 [...] is no data. Results Test Result Range [id number] - 05/18/16 09:20 Serum or plasma urea nitrogen measurement (mass/volume) 19 mg/dL 7-18 Serum or plasma creatinine measurement (mass/volume) 1.37 mg/dL 0.60-1.30 Serum or plasma urea nitrogen/creatinine mass ratio 14 NRG Serum or plasma creatinine measurement with calculation of estimated glomerular filtration rate 36 NRG Complete blood count (CBC) with automated white blood cell (WBC) differential - 07/01/18 13:52 Blood leukocytes automated count (number/volume) 10.3 10*3/uL 4.3-11.0 Blood erythrocytes automated count (number/volume) 3.99 10*6/uL 4.35-5.85 Venous blood hemoglobin measurement (mass/volume) 13.2 g/dL 11.5-16.0 Blood hematocrit (volume fraction) 39 % 35-52 Automated erythrocyte mean corpuscular volume 98 [foz_us] 80-99 Automated erythrocyte mean corpuscular hemoglobin (mass per erythrocyte) 33 pg 25-34 Automated erythrocyte mean corpuscular hemoglobin concentration measurement ( mass/volume) 34 g/dL 32-36 Automated erythrocyte distribution width ratio 13.3 % 10.0-14.5 Automated blood platelet count (count/volume) 139 10*3/uL 130-400 Automated blood platelet mean volume measurement 9.3 [foz_us] 7.4-10.4 Automated blood neutrophils/100 leukocytes 72 % 42-75 Automated blood lymphocytes/100 leukocytes 17 % 12-44 Blood monocytes/100 leukocytes 11 % 0-12 Automated blood eosinophils/100 leukocytes 1 % 0-10 Automated blood basophils/100 leukocytes 0 % 0-10 Blood neutrophils automated count (number/volume) 7.4 10*3 1.8-7.8 Blood lymphocytes automated count (number/volume) 1.7 10*3 1.0-4.0 Blood monocytes automated count (number/volume) 1.1 10*3 0.0-1.0 Automated eosinophil count 0.1 10*3/uL 0.0-0.3 Automated blood basophil count (count/volume) 0.0 10*3/uL 0.0-0.1 Comprehensive metabolic panel - 07/01/18 13:52 Serum or plasma sodium measurement (moles/volume) 136 mmol/L 135-145 Serum or plasma potassium measurement (moles/volume) 4.4 mmol/L 3.6-5.0 Serum or plasma chloride measurement (moles/volume) 102 mmol/L 98-107 Carbon dioxide 26 mmol/L 21-32 Serum or plasma anion gap determination (moles/volume) 8 mmol/L 5-14 Serum or plasma urea nitrogen measurement (mass/volume) 16 mg/dL 7-18 Serum or plasma creatinine measurement (mass/volume) 1.31 mg/dL 0.60-1.30 Serum or plasma urea nitrogen/creatinine mass ratio 12 NRG Serum or plasma creatinine measurement with calculation of estimated glomerular filtration rate 38 NRG Serum or plasma glucose measurement (mass/volume) 94 mg/dL 70-105 Serum or plasma calcium measurement (mass/volume) 9.4 mg/dL 8.5-10.1 Serum or plasma total bilirubin measurement (mass/volume) 0.6 mg/dL 0.1-1.0 Serum or plasma alkaline phosphatase measurement (enzymatic activity/volume) 48 U/L 40-136 Serum or plasma aspartate aminotransferase measurement (enzymatic activity/ volume) 22 U/L 5-34 Serum or plasma alanine aminotransferase measurement (enzymatic activity/volume ) 15 U/L 0-55 Serum or plasma protein measurement (mass/volume) 6.3 g/dL 6.4-8.2 Serum or plasma albumin measurement (mass/volume) 4.0 g/dL 3.2-4.5 CALCIUM CORRECTED 9.4 mg/dL 8.5-10.1 Complete urinalysis with reflex to culture - 07/01/18 16:05 Urine color determination YELLOW NRG Urine clarity determination SLIGHTLY CLOUDY NRG Urine pH measurement by test strip 7 5-9 Specific gravity of urine by test strip 1.005 1.016- 1.022 Urine protein assay by test strip, semi-quantitative NEGATIVE NEGATIVE Urine glucose detection by automated test strip NEGATIVE NEGATIVE Erythrocytes detection in urine sediment by light microscopy NEGATIVE NEGATIVE Urine ketones detection by automated test strip 2+ NEGATIVE Urine nitrite detection by test strip NEGATIVE NEGATIVE Urine total bilirubin detection by test strip NEGATIVE NEGATIVE Urine urobilinogen measurement by automated test strip (mass/volume) NORMAL NORMAL Urine leukocyte esterase detection by dipstick 1+ NEGATIVE Automated urine sediment erythrocyte count by microscopy (number/high power field) NONE NRG Automated urine sediment leukocyte count by microscopy (number/high power field ) RARE NRG Bacteria detection in urine sediment by light microscopy NEGATIVE NRG Squamous epithelial cells detection in urine sediment by light microscopy 0-2 NRG Crystals detection in urine sediment by light microscopy NONE NRG Casts detection in urine sediment by light microscopy PRESENT NRG Mucus detection in urine sediment by light microscopy NEGATIVE NRG Complete urinalysis with reflex to culture NO NRG Hyaline casts detection in urine sediment by light microscopy 0-2 NRG Encounters ACCT No. Visit Date/Time Discharge Status Pt. Type Provider Facility Loc./Unit Complaint [id number] 06/26/2018 12:48:00 06/26/2018 23:59:59 CLS Outpatient DIOR HSIEH MD [facility] REHAB L SHOULDER PAIN; UNSTEADY GAIT [id number] 03/24/2018 00:10:00 03/24/2018 23:59:59 CLS Preadmit DIOR HSIEH MD [facility] [place] [address] WE[facility] [id number] 03/17/2018 14:19:00 03/23/2018 00:01:00 DIS Outpatient DIOR HSIEH MD [facility] [place] [address] [facility] [id number] 01/17/2018 13:07:00 01/17/2018 15:46:00 DIS [facility] [id number] 09/23/2017 13:37:00 09/23/2017 23:59:59 CLS Outpatient ANGELICA FITCH APRN [facility] RAD KNEE PAIN, BRUISING AND BULGE RIGHT [id number] 07/10/2017 11:48:00 07/10/2017 23:59:59 CLS Outpatient DIOR HSIEH MD [facility] RAD BILAT THYROID NODULES [id number] 04/19/2017 14:08:00 04/19/2017 15:58:00 DIS Emergency SHAR CASTELLANO MD [facility] ER FALL [id number] 04/01/2017 12:30:00 04/01/2017 23:59:59 CLS Outpatient DIOR HSIEH MD [facility] RAD THYROID MASS [id number] 03/25/2017 11:48:00 03/25/2017 23:59:59 CLS Outpatient DIOR HSIEH MD [facility] RAD THYROID MASS [id number] 01/04/2017 13:30:00 01/04/2017 23:59:59 CLS Preadmit SALLY DAMIAN, TAMIA Mccollum [facility] RAD THYROID NODULE [id number] 05/18/2016 09:00:00 05/18/2016 23:59:59 CLS Outpatient SHRUTHI JI MD [facility] RAD CAROTID ARTERY STENOSIS [id number] 05/16/2016 09:00:00 05/16/2016 23:59:59 CLS Outpatient SHRUTHI JI MD [facility] RAD CAROTID ARTERY STENOSIS [id number] 09/28/2015 14:25:00 09/28/2015 23:59:59 CLS Outpatient SHRUTHI JI MD [facility] CARD CAST,HTN,HLP [id number] 12/30/2014 13:28:00 12/30/2014 23:59:59 CLS Outpatient CROW OSRTO [facility] CARD ADAMS,HTN [id number] 12/08/2014 14:32:00 12/08/2014 23:59:59 CLS Outpatient DIOR HSIEH MD [facility] RAD INCREASED LFTS [id number] 02/04/2014 13:27:00 02/04/2014 23:59:59 CLS Outpatient DIOR HSIEH MD [facility] RAD ABDOMINAL PAIN FOLLOW UP DIVERTICULITIS [id number] 01/20/2014 03:30:00 01/22/2014 13:15:00 DIS Inpatient DIOR HSIEH MD [facility] 4TH LLQ ABD PAIN, DIVERTICULITIS,UTI [id number] 09/19/2012 14:14:00 09/22/2012 16:25:00 DIS Outpatient ANGELICA FITCH APRN [facility] REHAB OA LT KNEE [id number] 08/08/2012 07:47:00 08/08/2012 10:11:00 DIS Emergency MYRA WSANSON MD [facility] ER POSS LEFT GREAT TOE INFECTION [id number] 07/01/2018 16:41:00 ACT Inpatient ANDRIA CASIANO MD [facility] 4TH DIVERTICULITIS [id number] 09/28/2015 14:26:00 Document Registration [id number] 12/14/2011 10:34:00 Document Registration [id number] 01/10/2011 08:47:00 Document Registration [id number] 12/27/2010 07:03:00 Document Registration [id number] 12/26/2010 10:13:00 Document Registration [id number] 12/22/2010 09:34:00 Document Registration [id number] 12/19/2010 08:52:00 Document Registration [id number] 11/06/2010 15:30:00 Document Registration [id number] 10/24/2010 07:34:00 Document Registration [id number] 12/30/2014 13:29:57 ACT Document Registration
[2018-07-01 18:26] VITALS: BP 144/88
--- NOTE | 2018-07-01 18:44 | NUR ---
LESLIE DENISE admitted to room 413-1, with an admitting diagnosis of DIVERTICULITIS, on 07/01/18 from ER via WHEELCHAIR, accompanied by ER STAFF.LESLIE DENISE introduced to surroundings, call light, bed controls, phone, TV, temperature control, lights, meal times, smoking policy, visitor policy, side rail policy, bathrooms and showers. Patient Rights given to patient in the handbook.LESLIE DENISE verbalizes understanding that [facility] is not responsible for the loss or damage to any personal effects or valuables that are kept in the patients posession during their hospitalization.
[2018-07-01] MEDS ORDERED: ONDANSETRON 4 MG/2 ML (SDV) Z0FRAN IV PRN (18:45)
[2018-07-01] MEDS: cefTRIAXone 1,000 MG/SWFI 10 ML IV PUSH IV SCH ×2 (18:52)
[2018-07-01] MEDS: NS IV 1000 ML 1,000 ML IV SCH (18:52)
[2018-07-01] MEDS ORDERED: fentaNYL INJECTION 100 MCG/2 ML AMP IV PRN (19:00)
[2018-07-01] MEDS ORDERED: FLU QUADRIvalent (5+ YOA) 2018-2019 (AFLURIA) 0.5 ML IM ONE (19:30)
[2018-07-01 20:05] VITALS: BP 144/88
[2018-07-01] MEDS: AMITRIPTYLINE 25 MG (ELAVIL) TAB PO SCH (20:45)
[2018-07-01] MEDS: metroNIDAZOLE 500 MG/100 ML IVPB (PRE-MIX) IV SCH (20:46)
[2018-07-01] MEDS ORDERED: KETOROLAC 15 MG/ML VIAL IV PRN (23:00)
[2018-07-02] VITALS (8 sets, daily range): BP systolic 117–185; BP diastolic 59–84
[2018-07-02] MEDS: metroNIDAZOLE 500 MG/100 ML IVPB (PRE-MIX) IV SCH ×4 (01:16→18:33)
--- NOTE | 2018-07-02 06:48 | NUR ---
PT URINATED A TOTAL OF 100ML ON MY SHIFT. BLADDER SCANNED PT AT 0630 AND IT SHOWED 145ML.
[2018-07-02 06:57] LABS: BASOPHILS % (AUTO) 0 % (0-10); EOSINOPHILS # (AUTO) 0.1 10^3/uL (0.0-0.3); EOSINOPHILS % (AUTO) 1 % (0-10); HEMATOCRIT 33 % (35-52); HEMOGLOBIN 11.4 G/DL (11.5-16.0); LYMPHOCYTES # (AUTO) 1.8 X 10^3 (1.0-4.0); LYMPHOCYTES % (AUTO) 24 % (12-44); MEAN CORPUSCULAR HEMOGLOBIN 34 PG (25-34); MEAN CORPUSCULAR HGB CONC 35 G/DL (32-36); MEAN CORPUSCULAR VOLUME 97 FL (80-99); MEAN PLATELET VOLUME 9.1 FL (7.4-10.4); MONOCYTES # (AUTO) 0.8 X 10^3 (0.0-1.0); MONOCYTES % (AUTO) 11 % (0-12); NEUTROPHILS # (AUTO) 4.9 X 10^3 (1.8-7.8); NEUTROPHILS % (AUTO) 64 % (42-75); PLATELET COUNT 131 10^3/uL (130-400); RED CELL DISTRIBUTION WIDTH 13.3 % (10.0-14.5); WHITE BLOOD COUNT 7.5 10^3/uL (4.3-11.0)
[2018-07-02 07:16] LABS: ALBUMIN 3.2 GM/DL (3.2-4.5); BILIRUBIN,TOTAL 0.6 MG/DL (0.1-1.0); CALCIUM 8.2 MG/DL (8.5-10.1); CREATININE SERUM 1.32 MG/DL (0.60-1.30); POTASSIUM 3.7 MMOL/L (3.6-5.0)
[2018-07-02] MEDS ORDERED: FAMO20TA3 PO (08:57)
[2018-07-02] MEDS ORDERED: DIAZ5TAB3 PO (08:57)
[2018-07-02] MEDS ORDERED: ASPI-808 PO (08:57)
[2018-07-02] MEDS ORDERED: LATA2.5D5 OU (08:57)
[2018-07-02] MEDS ORDERED: AMIT25TA9 PO (08:58)
[2018-07-02] MEDS ORDERED: OMG1KC PO (08:58)
--- NOTE | 2018-07-02 09:25 | NUR ---
WENT OVER THE LIST OF MEDICATIONS ON THE CHART FROM DR. HSIEH'S OFFICE WITH THE PATIENT AND CALLED [facility] AND [facility] FOR LISTS OF RECENTLY FILLED MEDICATIONS. [facility] FILLED: 06-04-18 AMITRIPTYLINE 25MG 1/2 TO 1 HS #90 (STATES SHE TAKES 1 HS) 05-31-18 DIAZEPAM 5MG HS #90 05-20-18 [facility] FILLED: 06-16-18 LIPITOR 10MG DAILY #30 06-11-18 ENALAPRIL HCTZ 5-12.5MG DAILY SHE TAKES THE FOLLOWING OTC: ASPIRIN 325MG DAILY FISH OIL TID PEPCID 40MG DAILY THE LIST FROM DR. HSIEH'S OFFICE WAS ONLY LACKING THE LATANOPROST BUT THE PATIENT STATES SHE IS STILL USING IT.
[2018-07-02] MEDS: NS IV 1000 ML 1,000 ML IV SCH ×2 (10:30→12:43)
--- NOTE | 2018-07-02 11:42 | History & Physical-Hospitalist ---
History of Present Illness HPI/Chief Complaint Pt is an 87yoCF who presented to the ER due to left sided abdominal pain for 2 days. She states she had intense soreness on the left side prompting her to seek evlauation in the ER. She denies any nausea, vomiting, fever, diarrhea, or constipation. She states she is still quite sore today on the left side. She was able to tolerate her CLD though. She passed a large loose stool this morning. She has no history of diverticulitis. Her last colonoscopy was done in [address] Mason. Source: patient Date Seen 07/02/18 Time Seen by a Provider: 11:37 Attending Physician Andria Calderon MD PCP Ezra Nelson MD Referring Physician Date of Admission Jul 01, 2018 at 16:41 Home Medications & Allergies Home Medications Reviewed patient Home Medication Reconciliation performed by pharmacy medication reconciliations casting technician and/or nursing. Patients Allergies have been reviewed. Allergies Allergies Coded Allergies Sulfa (Sulfonamide Antibiotics) (Verified Allergy, Unknown, 01/20/14) Past Ciyjycl-Wemnrf-Mgxgxz Hx Past Med/Social Hx: Reviewed Nursing Past Med/Soc Hx, Reviewed and Corrections made Patient Social History Employed/Student: retired Alcohol Use: Denies Use Recreational Drug Use: No Smoking Status: Never a Smoker Recent Foreign Travel: No Contact w/other who traveled: No Recent Hopitalizations: No Recent Infectious Disease Expo: No Immunizations Up To Date Tetanus Booster (TDap): Unknown Pediatric: No Date of Pneumonia Vaccine: Jul 01, 2016 Seasonal Allergies Seasonal Allergies: No Past Medical History Surgeries: Abdominal, Eye Surgery, Gallbladder, Joint Replacement, Vascular Surgery Cardiac: High Cholesterol, Hypertension, Peripheral Vascular : No Reproductive: No Sexually Transmitted Disease: No HIV/AIDS: No Genitourinary: Kidney Infection, UTI-Chronic Gastrointestinal: Diverticulosis Musculoskeletal: Gout HEENT: Cataract Psychosocial: Sleep Difficulties History of Blood Disorders: No Family History Reviewed Nursing Family Hx FH: cancer G8 SISTER G8 SISTER Parkinson's disease 19 FATHER G8 BROTHER Review of Systems Constitutional: No chills, No fever, No weakness Respiratory: No cough, No dyspnea on exertion, No short of breath Gastrointestinal: abdominal pain; No constipation, No diarrhea, No loss of appetite, No melena, No nausea, No vomiting Genitourinary: No dysuria Musculoskeletal: No joint pain, No muscle pain All Other Systems Reviewed Negative Unless Noted: Yes Physical Exam Physical Exam Vital Signs Vital Signs - First Documented 07/01/18 07/01/18 11:27 14:45 Temp 96.3 Pulse 77 Resp 18 B/P (MAP) 110/62 (78) Pulse Ox 95 O2 Delivery Room Air O2 Flow Rate 2.00 Capillary Refill : Less Than 3 Seconds Height, Weight, BMI Height: 5'5.00" Weight: 202lbs. 0.0oz. [id number]; 36.0 BMI Method:Stated General Appearance: No Apparent Distress, WD/WN HEENT: Normal ENT Inspection, Moist Mucous Membranes; No Scleral Icterus (L), No Scleral Icterus (R) Neck: Normal Inspection, Supple; No Thyromegaly Respiratory: Lungs Clear, No Respiratory Distress Cardiovascular: Regular Rate, Rhythm, No Murmur Gastrointestinal: Normal Bowel Sounds, Soft, Tenderness (left sided) Extremity: No Calf Tenderness, No Pedal Edema Neurologic/Psychiatric: Alert, Oriented x3, Normal Mood/Affect Skin: Normal Color, Warm/Dry Results Results/Procedures Labs Laboratory Tests 07/01/18 13:52 07/02/18 06:50 Patient resulted labs reviewed. Imaging: Reviewed Imaging Report Imaging Date of Exam: 07/01/18 CT ABDOMEN/PELVIS WO PROCEDURE: CT abdomen and pelvis without contrast. TECHNIQUE: Multiple contiguous axial images were obtained through the abdomen and pelvis without the use of intravenous contrast. INDICATION: Abdominal pain. COMPARISON: Correlation is made with prior CT from 02/04/2014. FINDINGS: The lung bases are clear. There is a moderate-sized hiatal hernia. The liver is unremarkable. The gallbladder is surgically absent. No biliary duct dilatation is seen. Pancreas and spleen are unremarkable. No adrenal mass is detected. No renal calculi or hydronephrosis is identified. Aorta is calcified but nonaneurysmal. There is diverticulosis of the descending colon and sigmoid. There is wall thickening with pericolonic inflammation at the junction of the descending colon and sigmoid consistent with acute diverticulitis. No abscess formation is seen. No bowel obstruction is identified. There is no free fluid or free air. The bladder is unremarkable. The uterus appears absent or atrophic. IMPRESSION: Findings consistent with acute diverticulitis at the junction of the descending colon and sigmoid. No abscess formation or bowel obstruction is identified. Assessment/Plan Admission Diagnosis Acute Diverticulitis Admission Status: Observation Diagnosis/Problems Diagnosis/Problems (1) Diverticulitis of intestine Status: Acute Assessment & Plan: Continue Rocephin and Flagyl Given persistent tenderness will consult Surgery Discussed with Dr Gonzáles who will see in consultation NPO- continue IVF Qualifiers: Diverticulitis site: large intestine Diverticulitis bleeding: without bleeding Diverticulitis complication: without perforation or abscess Qualified Codes: K57.32 - Diverticulitis of large intestine without perforation or abscess without bleeding (2) Essential (primary) hypertension Status: Chronic Assessment & Plan: BP well controlled, hold home meds (3) CKD (chronic kidney disease) Status: Chronic Assessment & Plan: At baseline Qualifiers: Chronic kidney disease stage: stage 3 (moderate) Qualified Codes: N18.3 - Chronic kidney disease, stage 3 (moderate) Clinical Quality Measures DVT/VTE Risk/Contraindication: Risk Factor Score Per Nursin RFS Level Per Nursing on Admit: 3=High ANDRIA CALDERON MD Jul 02, 2018 11:42
[2018-07-02] MEDS: ENOXAPARIN 40 MG/0.4 ML (LOVENOX) SYR SQ SCH (16:40)
[2018-07-02] MEDS: cefTRIAXone 1,000 MG/SWFI 10 ML IV PUSH IV SCH ×2 (18:25)
[2018-07-02] MEDS: AMITRIPTYLINE 25 MG (ELAVIL) TAB PO SCH (21:07)
--- NOTE | 2018-07-02 21:25 | Consultation ---
History of Present Illness History of Present Illness Patient Consulted On(christopher/time) 07/02/18 13:39 Date Seen by Provider: Jul 02, 2018 Time Seen by Provider: 13:39 History of Present Illness consult requested by Dr. Calderon for acute diverticulitis Patient is an 87-year-old female who has been having pain for approximately 2 days in the left lower quadrant abdominal area. Patient states that it's and aching pain that stays in the left lower quadrant no radiation. Patient states the pain has varied in intensity mostly being moderate to severe but currently patient states minimal tenderness. Patient states that she's had a very loose stool this morning has not noticed any blood. Patient states that she's had this prior she thinks one time before. Nothing really seems to make the pain worse except for movement or activity. Nothing was seems to make it better that she knows of. Patient had a CT scan which was consistent with acute diverticulitis of the descending and sigmoid colon. She's tolerating liquids at this time she is not having any nausea vomiting fever sweats chills shortness of breath or chest pain. Allergies and Home Medications Allergies Coded Allergies: Sulfa (Sulfonamide Antibiotics) (Verified Allergy, Unknown, 01/20/14) Home Medications Amitriptyline HCl 25 Mg Tablet, 25 MG PO HS, (Reported) Aspirin 325 Mg Tablet, 325 MG PO DAILY, (Reported) Atorvastatin Calcium 10 Mg Tablet, 10 MG PO HS, (Reported) Diazepam 5 Mg Tablet, 5 MG PO HS, (Reported) Enalapril/Hydrochlorothiazide 1 Each Tablet, 1 TAB PO DAILY, (Reported) Famotidine 20 Mg Tablet, 40 MG PO DAILY, (Reported) Latanoprost 2.5 Ml Drops, 1 DROP OU HS, (Reported) Aiken 3 Polyunsat Fatty Acids 1,000 Mg Cap, 1,000 MG PO TID, (Reported) Patient Home Medication List Home Medication List Reviewed: Yes Past Hfiboke-Wogzry-Dsqvbp Hx Patient Social History Alcohol Use: Denies Use Recreational Drug Use: No Smoking Status: Never a Smoker Recent Foreign Travel: No Contact w/Someone Who Travel: No Recent Infectious Disease Expo: No Recent Hopitalizations: No Immunizations Up To Date Tetanus Booster (TDap): Unknown PED Vaccines UTD: No Date of Pneumonia Vaccine: Jul 01, 2016 Seasonal Allergies Seasonal Allergies: No Surgeries History of Surgeries: Yes (KIDNEY SURG 1972) Surgeries: Abdominal, Eye Surgery, Gallbladder, Joint Replacement, Vascular Surgery Respiratory History of Respiratory Disorde: No Cardiovascular History of Cardiac Disorders: Yes Cardiac Disorders: High Cholesterol, Hypertension, Peripheral Vascular Neurological History of Neurological Disord: No Reproductive System : No Hx Reproductive Disorders: No Sexually Transmitted Disease: No HIV/AIDS: No Genitourinary History of Genitourinary Disor: Yes Genitourinary Disorders: Kidney Infection, UTI-Chronic Gastrointestinal History of Gastrointestinal Di: Yes Gastrointestinal Disorders: Diverticulosis Musculoskeletal History of Musculoskeletal Dis: Yes (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) Musculoskeletal Disorders: Gout Endocrine History of Endocrine Disorders: No HEENT HEENT Disorders: Cataract Cancer History of Cancer: No Psychosocial History of Psychiatric Problem: Yes Behavioral Health Disorders: Sleep Difficulties Integumentary History of Skin or Integumenta: No Blood Transfusions History of Blood Disorders: No Family Medical History Significant Family History: Cancer Family Medial History: FH: cancer G8 SISTER G8 SISTER Parkinson's disease 19 FATHER G8 BROTHER Review of Systems-General Constitutional: see HPI EENTM: no symptoms reported Respiratory: no symptoms reported Cardiovascular: no symptoms reported Gastrointestinal: see HPI Genitourinary: no symptoms reported Musculoskeletal: no symptoms reported Skin: no symptoms reported Psychiatric/Neurological: No Symptoms Reported Physical Exam-General Problems Physical Exam Vital Signs Vital Signs - First Documented 07/01/18 07/01/18 11:27 14:45 Temp 96.3 Pulse 77 Resp 18 B/P (MAP) 110/62 (78) Pulse Ox 95 O2 Delivery Room Air O2 Flow Rate 2.00 Capillary Refill : Less Than 3 Seconds General Appearance: no apparent distress (sitting in chair) HEENT: PERRL/EOMI, normal ENT inspection Neck: non-tender, supple Respiratory: chest non-tender, no respiratory distress, no accessory muscle use Cardiovascular: regular rate, rhythm Gastrointestinal: soft, no organomegaly, no pulsatile mass, tenderness (left lower quadrant) Rectal: deferred Back: normal inspection, no CVA tenderness Extremities: non-tender, normal inspection 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/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: 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 nml as tested, no motor/sensory deficits, alert, normal mood/affect, oriented x 3 Skin: normal color, warm/dry Lymphatic: no adenopathy Data Review Labs Laboratory Tests 07/02/18 06:50: White Blood Count 7.5, Red Blood Count 3.40L, Hemoglobin 11.4L, Hematocrit 33L, Mean Corpuscular Volume 97, Mean Corpuscular Hemoglobin 34, Mean Corpuscular Hemoglobin Concent 35, Red Cell Distribution Width 13.3, Platelet Count 131, Mean Platelet Volume 9.1, Neutrophils (%) (Auto) 64, Lymphocytes (%) (Auto) 24, Monocytes (%) (Auto) 11, Eosinophils (%) (Auto) 1, Basophils (%) (Auto) 0, Neutrophils # (Auto) 4.9, Lymphocytes # (Auto) 1.8, Monocytes # (Auto) 0.8, Eosinophils # (Auto) 0.1, Basophils # (Auto) 0.0, Sodium Level 136, Potassium Level 3.7, Chloride Level 104, Carbon Dioxide Level 24, Anion Gap 8, Blood Urea Nitrogen 16, Creatinine 1.32H, Estimat Glomerular Filtration Rate 38, BUN/ Creatinine Ratio 12, Glucose Level 104, Calcium Level 8.2L, Corrected Calcium 8.8, Total Bilirubin 0.6, Aspartate Amino Transf (AST/SGOT) 22, Alanine Aminotransferase (ALT/SGPT) 15, Alkaline Phosphatase 38L, Total Protein 5.0L, Albumin 3.2 Assessment/Plan Assessment/Plan Assessment/Plan left lower quadrant abdominal pain Acute diverticulitis Patient is a 87-year-old femalewith acute diverticulitis. Would continue on Rocephin and Flagyl. Patient okay on clear liquids. No evidence of any perforation or microperforation on CT scan. We'll continue with medical management. Patient was discussed we'll continue with medical management if any changes we' ll reassess. If patient continues to do well with medical management and after discharge would consider colonoscopy since her last colonoscopy was 10 years ago if benefits outweigh risk. Patient and family in agreement with plan. Clinical Quality Measures DVT/VTE Risk/Contraindication: Risk Factor Score Per Nursin RFS Level Per Nursing on Admit: 3=High DAYA FERNANDEZ DO Jul 02, 2018 21:25
--- NOTE | 2018-07-03 00:06 | NUR ---
2335- Went to take pts vital signs and pt started complaining of tingling in her left arm that radiates into her gums. On assessment bilat hand used car lot porter are equal, bilat legs are equal, no facial drooping or slurred speech at this time. Vitals signs BP-185/80 manual, temp-96.9, HR-86, resp-20, O2-96% on RA. 0005-Spoke with Dr. Diamond and informed him of pts tingling in her left arm and her BP of 185/80. Telephone orders received to continue to monitor pt, no new orders at this time.
[2018-07-03 00:30] VITALS: BP 167/78
[2018-07-03] MEDS: metroNIDAZOLE 500 MG/100 ML IVPB (PRE-MIX) IV SCH ×4 (02:38→18:24)
[2018-07-03 04:05] VITALS: BP 152/74
[2018-07-03] MEDS: NS IV 1000 ML 1,000 ML IV SCH (05:59)
[2018-07-03 08:00] VITALS: BP 151/80
--- NOTE | 2018-07-03 08:27 | Progress Note ---
Subjective Date Seen by a Provider: Jul 03, 2018 Time Seen by a Provider: 08:22 Subjective/Events-last exam patient still with llq abdominal pain. Slightly better today. Tolerating diet. Had hard time sleeping last night. No other complaints denies n/v fever sweats chills shortness of breath or chest pain. Objective Exam Vital Signs Date Time Temp Pulse Resp B/P (MAP) Pulse Ox O2 Delivery O2 Flow Rate FiO2 07/03/18 04:05 97.6 77 20 152/74 (100) 94 Room Air 07/03/18 00:30 167/78 (107) 07/02/18 23:45 185/80 (115) 07/02/18 23:35 96.9 86 20 178/79 (112) 96 Room Air 07/02/18 20:34 98.3 79 16 146/66 (92) 97 Room Air 07/02/18 20:00 Room Air 07/02/18 16:12 98.2 75 16 150/67 (94) 97 Room Air 07/02/18 12:05 97.6 07/02/18 12:00 95.2 77 16 156/66 (96) 96 Room Air 2.00 I & O 07/03/18 07:00 Intake Total 2630 ml Balance 2630 ml Capillary Refill : Less Than 3 Seconds General Appearance: No Apparent Distress, WD/WN HEENT: Normal ENT Inspection, Moist Mucous Membranes; No Scleral Icterus (L), No Scleral Icterus (R) Neck: Normal Inspection, Supple; No Thyromegaly Respiratory: Chest Non Tender, Lungs Clear, No Respiratory Distress Cardiovascular: Regular Rate, Rhythm, No Murmur Gastrointestinal: soft, no organomegaly, no pulsatile mass, tenderness (left lower quadrant) Extremity: No Calf Tenderness, No Pedal Edema Neurologic/Psychiatric: Alert, Oriented x3, Normal Mood/Affect Skin: Normal Color, Warm/Dry Assessment/Plan Assessment/Plan Assessment/Plan left lower quadrant abdominal pain Acute diverticulitis Patient is a 87-year-old female with acute diverticulitis. On Rocephin and Flagyl. Keep on clear liquids today. No evidence of any perforation or microperforation on CT scan. Patient was discussed we'll continue with medical management if any changes we' ll reassess. If patient continues to do well with medical management and after discharge would consider colonoscopy since her last colonoscopy was 10 years ago if benefits outweigh risk. Clinical Quality Measures DVT/VTE Risk/Contraindication: Risk Factor Score Per Nursin RFS Level Per Nursing on Admit: 3=High DAYA FERNANDEZ DO Jul 03, 2018 08:27
--- NOTE | 2018-07-03 08:48 | Progress Note-Hospitalist ---
Subjective HPI/CC On Admission Date Seen by Provider: Jul 03, 2018 Time Seen by Provider: 08:43 Pt is an 87yoCF who presented to the ER due to left sided abdominal pain for 2 days. She states she had intense soreness on the left side prompting her to seek evlauation in the ER. She denies any nausea, vomiting, fever, diarrhea, or constipation. She states she is still quite sore today on the left side. She was able to tolerate her CLD though. She passed a large loose stool this morning. She has no history of diverticulitis. Her last colonoscopy [place] [address] Mason. Subjective/Events-last exam Pt reports having a rough night due to thinking the nurses are mad at her. She states she has a burning sensation in her feet that is chronic and she normally treats with rubbing lotion on her feet. She also had this sensation in her hands as well and thought it went up her left arm. She also had a band around her IV that she thought was too tight and causing these symptoms. Objective Exam Vital Signs Vital Signs Date Time Temp Pulse Resp B/P (MAP) Pulse Ox O2 Delivery O2 Flow Rate FiO2 07/03/18 12:00 97.9 76 20 131/73 (92) 94 Room Air 07/02/18 12:00 2.00 Capillary Refill : Less Than 3 Seconds General Appearance: No Apparent Distress, WD/WN HEENT: No Scleral Icterus (L), No Scleral Icterus (R) Neck: No Thyromegaly Respiratory: Lungs Clear, No Respiratory Distress Cardiovascular: Regular Rate, Rhythm, No Murmur Gastrointestinal: Normal Bowel Sounds, Soft, Tenderness (left sided) Extremity: No Calf Tenderness, No Pedal Edema Neurologic/Psychiatric: Alert, Oriented x3, Normal Mood/Affect Skin: Normal Color, Warm/Dry Results/Procedures Lab Patient resulted labs reviewed. Imaging: Reviewed Imaging Report Assessment/Plan Assessment and Plan Assess & Plan/Chief Complaint Acute Diverticulitis Diagnosis/Problems Diagnosis/Problems (1) Diverticulitis of intestine Status: Acute Assessment & Plan: Continue Rocephin and Flagyl IVF Surgery consulted, appreciate recs CLD Qualifiers: Diverticulitis site: large intestine Diverticulitis bleeding: without bleeding Diverticulitis complication: without perforation or abscess Qualified Codes: K57.32 - Diverticulitis of large intestine without perforation or abscess without bleeding (2) Essential (primary) hypertension Status: Chronic Assessment & Plan: BP well controlled, hold home meds (3) CKD (chronic kidney disease) Status: Chronic Assessment & Plan: At baseline Qualifiers: Chronic kidney disease stage: stage 3 (moderate) Qualified Codes: N18.3 - Chronic kidney disease, stage 3 (moderate) (4) Paresthesia of both hands Assessment & Plan: Continue Amitriptyline Bilateral symptoms not consistent with CVA Consider CT Head/Neck if persists Clinical Quality Measures DVT/VTE Risk/Contraindication: Risk Factor Score Per Nursin RFS Level Per Nursing on Admit: 3=High ANDRIA CASIANO MD Jul 03, 2018 08:47
[2018-07-03 12:00] VITALS: BP 131/73
[2018-07-03 16:00] VITALS: BP 144/67
[2018-07-03] MEDS: cefTRIAXone 1,000 MG/SWFI 10 ML IV PUSH IV SCH ×2 (18:25)
[2018-07-03] MEDS: ENOXAPARIN 40 MG/0.4 ML (LOVENOX) SYR SQ SCH (18:25)
[2018-07-03 20:00] VITALS: BP 177/80
[2018-07-03] MEDS: AMITRIPTYLINE 25 MG (ELAVIL) TAB PO SCH (20:17)
[2018-07-03] MEDS ORDERED: LATANOPROST 0.005% (XALATAN) OPHTH SOLN 2.5 ML OU SCH (21:00)
[2018-07-03] MEDS ORDERED: DIAZEPAM 5 MG (VALIUM) TABLET PO SCH (21:00)
[2018-07-03] MEDS ORDERED: ATORVASTATIN 10 MG (LIPITOR) TABLET PO SCH (21:00)
--- NOTE | 2018-07-03 23:16 | NUR ---
2300 PT REPORTS CHEST PAIN THAT RADIATES TO RIGHT ARM AND STATES SHE THINKS IT IS HER HEART. THIS RN TOOK EKG, VITALS, AND CALLED DR SWANSON 231 DR SWANSON GAVE TELEPHONE ORDER FOR NITROGLYCERIN 6.5 MG TAB ONE TIME DOSE AND TROPONIN VIA TELEPHONE.
[2018-07-03] MEDS ORDERED: NITROGLYCERIN 6.5 MG PO ONE (23:30)
[2018-07-03] MEDS ORDERED: NITROGLYCERIN 0.4 MG SL TABS BTL 25'S SL ONE (23:32)
[2018-07-04] VITALS: BP 163/87
[2018-07-04] MEDS: metroNIDAZOLE 500 MG/100 ML IVPB (PRE-MIX) IV SCH ×3 (01:48→12:45)
[2018-07-04 08:00] VITALS: BP 164/84
[2018-07-04] MEDS ORDERED: FAMOTIDINE 20 MG (PEPCID) TABLET PO SCH (09:00)
[2018-07-04] MEDS ORDERED: ASPIRIN 325 MG (5 GR) TABLET PO SCH (09:00)
[2018-07-04] MEDS ORDERED: HYDROCHLOROTHIAZIDE 12.5 MG (HCTZ) CAP PO SCH (09:00)
[2018-07-04] MEDS ORDERED: ENALAPRIL 5 MG (VASOTEC) TAB PO SCH (09:00)
--- NOTE | 2018-07-04 09:25 | Physical Therapy Evaluation ---
PT Evaluation-General Medical Diagnosis Admission Date Jul 03, 2018 at 08:47 Medical Diagnosis: diverticulitis Onset Date: Jul 03, 2018 Therapy Diagnosis Therapy Diagnosis: debility Height/Weight Height (Feet): 5 Height (Inches): 5.00 Weight (Pounds): 202 Weight (Ounces): 0.0 Precautions Precautions/Isolations: Fall Prevention, Standard Precautions Weight Bear Status Right Lower Extremity: Right Weight Bearing/Tolerated Left Lower Extremity: Left Weight Bearing/Tolerated Referral Physician: Kvng Reason for Referral: Evaluation/Treatment Medical History Pertinent Medical History: HTN, PVD, Renal Insufficiency Current History ED with left quadrant pain Reviewed History: Yes Social History Home: Single Level Current Living Status: Alone Entry Into Home: Stairs With Railing PT Steps Into Home: 4 Prior/Core FIM Prior Level of Function Therapy Code Descriptions/Definitions Functional Saunders Measure: 0=Not Assessed/NA 4=Minimal Assistance 1=Total Assistance 5=Supervision or Setup 2=Maximal Assistance 6=Modified Saunders 3=Moderate Assistance 7=Complete Saunders Therapy Quality Codes: 6 Independent with activity with or without an assistive device 5 Patient requires set up or clean up by helper. Patient completes activity by themselves 4 Supervision or touching assist (CGA). [place] provide cues , steadying assist 3 The helper provides less than half the effort to complete the activity 2 The helper provides more than half the effort to complete the activity 1 Dependent. The helper does all the effort to complete an activity 7 Patient refused to complete or attempt activity 9 The patient did not perform the activity before the current illness or injury 88 Not attempted due to Medical conditions or safety concerns Functional Abilities and Goals: Independent: Patient completed the activities by him/herself, with or without an assistive device, with no assistance from a helper. Needed Some Help: Patient needed partial assistance from another person to complete activities. Dependent: A helper completed the activities for the patient. Unknown: Not Applicable: Bed Mobility: 6 Transfers (B,C,W/C) (FIM): 6 Gait: 6 Stairs: 6 Indoor Mobility (Ambulation): Independent Stairs: Independent Prior Devices Use: Walker PT Evaluation-Current Subjective Patient reports she hopes to go home today. Agrees to PT. Pain Numeric Pain Scale: 0-No Pain Location: No Pain Reported Objective Patient Orientation: Normal For Age ROM/Strength ROM Lower Extremities bilateral LE WFL Strength Lower Extremities 4+5 grossly bilaterally Integumentary/Posture Integumentary refer to nursing notes Bowel Incontinence: No Bladder Incontinence: No Posture WFL Neuromuscular (Tone, Coordination, Reflexes) grossly intact Sensory Vision: Wears Glasses Hearing: Functional Sensation Right Lower Extremit: Intact Sensation Left Lower Extremity: Intact Transfers Therapy Code Descriptions/Definitions Functional Saunders Measure: 0=Not Assessed/NA 4=Minimal Assistance 1=Total Assistance 5=Supervision or Setup 2=Maximal Assistance 6=Modified Saunders 3=Moderate Assistance 7=Complete Saunders Transfers (B, C, W/C) (FIM): 6 Scootin Rollin Supine to/from Sit: 6 Sit to/from Stand: 6 Gait Mode of Locomotion: Walk Anticipated Mode of Locomotion: Walk Gait (FIM): 6 Distance (FIM): 3=150 ft Distance: 500' Gait Level of Assist: 6 Gait Assistive Device: FWW Comments/Gait Description safe and functional/PLOF Stairs declined stating, "I won't have any problem going up the steps" Balance Sitting Static: Normal Sitting Dynamic: Normal Standing Static: Normal Standing Dynamic: Normal Assessment/Needs 87 y.o. female, is currently at [facility] with all gross motor skills and does not require skilled therapy intervention at this time. Patient reports [facility]. Rehab Potential: Good PT Plan Treatment/Plan Treatment Plan: Discontinue PT, goals met Treatment Plan: Other Treatment Duration: Jul 04, 2018 Frequency: 1 time per week Estimated Hrs Per Day: .25 hour per day Patient and/or Family Agrees t: Yes Discharge Recommendations Therapy D/C Recommendations: Home Independently Time/GCodes Time In: 850 Time Out: 903 Total Billed Treatment Time: 13 Total Billed Treatment 1 visit EVLowC 13 min CLYDE ROGERS PT Jul 04, 2018 09:25
[2018-07-04 12:00] VITALS: BP 174/84
[2018-07-04] MEDS ORDERED: CEPH-507 PO (12:28)
[2018-07-04] MEDS ORDERED: METR500T PO (12:28)
--- NOTE | 2018-07-04 12:43 | Discharge Inst-Simple/Standard ---
Discharge Inst-Standard Discharge Medications New, Converted or Re-Newed RX: Transmitted to Pharmacy Patient Instructions/Follow Up Plan of Care/Instructions/FU: Please continue to take your medications as written. Please follow up with Dr Nelson's office next week and with Dr Gonzáles in 3 weeks. Activity as Tolerated: Yes Discharge Diet: Soft Diet Return to The Hospital For: Worsening abdominal pain, fever, no bowel movement or gas for over 24 hours, or if you feel you are getting worse. ANDRIA CASIANO MD Jul 04, 2018 12:41
--- NOTE | 2018-07-04 14:39 | Discharge Summary-Hospitalist ---
Diagnosis/Chief Complaint Date of Admission Jul 03, 2018 at 08:47 Date of Discharge Discharge Date: Jul 04, 2018 Admission Diagnosis Acute Diverticulitis Discharge Diagnosis (1) Diverticulitis of intestine Status: Acute Assessment & Plan: Continue Rocephin and Flagyl IVF Surgery consulted, appreciate recs CLD (2) Essential (primary) hypertension Status: Chronic Assessment & Plan: BP well controlled, hold home meds (3) CKD (chronic kidney disease) Status: Chronic Assessment & Plan: At baseline (4) Paresthesia of both hands Assessment & Plan: Continue Amitriptyline Bilateral symptoms not consistent with CVA Consider CT Head/Neck if persists Discharge Summary Discharge Physical Exam Allergies: Coded Allergies: Sulfa (Sulfonamide Antibiotics) (Verified Allergy, Unknown, 01/20/14) Vitals & I&Os Vital Signs Date Time Temp Pulse Resp B/P (MAP) Pulse Ox O2 Delivery O2 Flow Rate FiO2 07/04/18 08:00 97.3 77 18 164/84 (110) 96 Room Air 07/02/18 12:00 2.00 General Appearance: No Apparent Distress, WD/WN Respiratory: Lungs Clear, No Respiratory Distress Cardiovascular: Regular Rate, Rhythm, No Murmur Gastrointestinal: Normal Bowel Sounds, Non Tender, Soft Hospital Course Pt was admitted for acute diverticulitis. She was treated with IV abx and had an otherwise uneventful hospital stay. She was kept on clear liquids for two days and then advanced to a soft diet which she tolerated well. On day of discharge she was agreeable with plan to DC home and follow up as an outpatient with Dr Gonzáles and her PCP Dr Nelson. She is to continue on oral abx and a soft diet before slowly advancing. She was discharged home in stable condition. I did call and update Giovanni Fraire APRN with Dr Nelson in regards to this hospital stay. Labs (last 24 hrs) Laboratory Tests 07/03/18 23:26: Troponin I < 0.028 Patient resulted labs reviewed. Imaging: Reviewed Imaging Report Discussion & Recommendations Discharge Planning: >30 minutes discharge planning Discharge Home Medications: Active Scripts Active Flagyl (Metronidazole) 500 Mg Tablet 500 Mg PO BID Keflex (Cephalexin) 500 Mg Capsule 500 Mg PO BID Reported Amitriptyline HCl 25 Mg Tablet 25 Mg PO HS Fish Oil 1,000 mg Capsule ([place] 3 Polyunsat Fatty Acids) 1,000 Mg Cap 1,000 Mg PO TID Latanoprost 2.5 Ml Drops 1 Drop OU HS Acid Rivet Sticker (FAMOTIDINE) (Famotidine) 20 Mg Tablet 40 Mg PO DAILY Aspirin 325 Mg Tablet 325 Mg PO DAILY Diazepam 5 Mg Tablet 5 Mg PO HS Enalapril-Hctz 5-12.5 mg Tab (Enalapril/Hydrochlorothiazide) 1 Each Tablet 1 Tab PO DAILY Atorvastatin Calcium 10 Mg Tablet 10 Mg PO HS Instructions to patient/family Please see electronic discharge instructions given to patient. Clinical Quality Measures DVT/VTE Risk/Contraindication: Risk Factor Score Per Nursin RFS Level Per Nursing on Admit: 3=High Problem Qualifiers (1) Diverticulitis of intestine: Diverticulitis site: large intestine Diverticulitis bleeding: without bleeding Diverticulitis complication: without perforation or abscess Qualified Codes: K57.32 - Diverticulitis of large intestine without perforation or abscess without bleeding (2) CKD (chronic kidney disease): Chronic kidney disease stage: stage 3 (moderate) Qualified Codes: N18.3 - Chronic kidney disease, stage 3 (moderate) ANDRIA CASIANO MD Jul 04, 2018 14:39
--- NOTE | 2018-07-04 16:06 | Progress Note ---
Subjective Date Seen by a Provider: Jul 04, 2018 Time Seen by a Provider: 09:21 Subjective/Events-last exam patient tolerating liquid diet. Not having any significant abdominal pain. Not having any nausea vomiting fever sweats chills shortness of breath or chest pain. Patient is afebrile. No family present at this time. Objective Exam Vital Signs Date Time Temp Pulse Resp B/P (MAP) Pulse Ox O2 Delivery O2 Flow Rate FiO2 07/04/18 14:58 07/04/18 12:00 97.4 82 18 174/84 (114) 99 Room Air 07/04/18 08:00 97.3 77 18 164/84 (110) 96 Room Air 07/04/18 08:00 Room Air 07/04/18 00:00 98.8 84 18 163/87 (112) 98 Room Air 07/03/18 20:00 Room Air 07/03/18 20:00 98.6 83 18 177/80 (112) 95 Room Air I & O 07/04/18 07:00 Intake Total 1127 ml Balance 1127 ml Capillary Refill : Less Than 3 Seconds General Appearance: No Apparent Distress, WD/WN HEENT: PERRL/EOMI; No Scleral Icterus (L), No Scleral Icterus (R) Neck: Full Range of Motion, Normal Inspection, Non Tender; No Thyromegaly Respiratory: Chest Non Tender, No Accessory Muscle Use, No Respiratory Distress Cardiovascular: Regular Rate, Rhythm, No Murmur Gastrointestinal: soft, no organomegaly, no pulsatile mass, tenderness (left lower quadrant, minimal) Extremity: No Calf Tenderness, No Pedal Edema Neurologic/Psychiatric: Alert, Oriented x3, Normal Mood/Affect Skin: Normal Color, Warm/Dry Lymphatic: No Adenopathy Results Lab Laboratory Tests 07/03/18 23:26: Troponin I < 0.028 Assessment/Plan Assessment/Plan Assessment/Plan left lower quadrant abdominal pain Acute diverticulitis Patient is a 87-year-old female with acute diverticulitis. On Rocephin and Flagyl. advance diet slowly Convert to oral antibiotics okay from surgical standpoint to discharge home with follow-up in approximately 3 weeks after discharge would consider colonoscopy since her last colonoscopy was 10 years ago if benefits outweigh risk. Clinical Quality Measures DVT/VTE Risk/Contraindication: Risk Factor Score Per Nursin RFS Level Per Nursing on Admit: 3=High DAYA FERNANDEZ DO Jul 04, 2018 16:06
== END 2018-07-04 15:20 | disposition home or self-care (01) | DRG 392 ==
LOC: EDUNIT# 10:31 → ER 10:32 → 4TH 16:41 → OBSVTOIN 07-03 08:47
PROVIDERS: ADMIT Family Medicine; ATTEND Family Medicine
DX: K57.32 Diverticulitis of large intestine without perforation or abscess without bleeding (principal); I12.9 Hypertensive chronic kidney disease with stage 1 through stage 4 chronic kidney disease, or unspecified chronic kidney disease; N18.3 Chronic kidney disease, stage 3 (moderate); R20.2 Paresthesia of skin; E78.00 Pure hypercholesterolemia, unspecified; I73.9 Peripheral vascular disease, unspecified; Z87.440 Personal history of urinary (tract) infections; Z79.82 Long term (current) use of aspirin
CPT/HCPCS: 36415; 74176; 80053; 81000; 84484; 85025; G0378